=== PATIENT | male | born 1945 | race Caucasian/White ===

== ENCOUNTER 2017-01-20 15:56 | Emergency (ER) | payer MEDICARE, OTHER ==
[2017-01-20] MEDS ORDERED: HYDROcodone/APAP 7.5-325MG 1 EACH TAB PO ONE (16:22)
--- NOTE | 2017-01-20 16:39 | XR ---
EXAMINATION TYPE: XR tibia fibula RT DATE OF EXAM: 01/20/2017 COMPARISON: NONE HISTORY: Laceration and pain TECHNIQUE: 4 views FINDINGS: I see no fracture nor dislocation. There is no sign of foreign body. There is soft tissue d eformity over the anterior lower tibia consistent with laceration. IMPRESSION: Soft tissue deformity. No fracture.
--- NOTE | 2017-01-20 17:33 | ED ---
Lower Extremity Injury HPI - General Chief Complaint: Extremity Injury, Lower Stated Complaint: Lac/ Leg Injury Time Seen by Provider: 01/20/17 16:18 Source: patient, RN notes reviewed Mode of arrival: wheelchair Limitations: physical limitation - History of Present Illness Initial Comments: This a 71-year-old male presents emergency Department chief complaint right leg laceration. Patient states that he was pulling on a rope that was attached to a tree states that the tree fell onto the ladder causing her to fall onto his right lower leg causing a laceration. His tetanus is up-to-date within last 3 years. Patient states that he is able to family but states his leg is very sore. He states is minimal bleeding at this time. He denies any other injuries. - Related Data Home Medications Medication Instructions Recorded Confirmed Omeprazole 20 mg PO DAILY 01/20/17 01/20/17 Previous Rx's Medication Instructions Recorded Cephalexin [Keflex] 500 mg PO Q6HR #40 cap 01/20/17 Allergies Allergy/AdvReac Type Severity Reaction Status Date / Time No Known Allergies Allergy Verified 01/20/17 16:24 Review of Systems ROS Statement: Those systems with pertinent positive or pertinent negative responses have been documented in the HPI. ROS Other: All systems not noted in ROS Statement are negative. Past Medical History Past Medical History: No Reported History History of Any Multi-Drug Resistant Organisms: None Reported Past Surgical History: Appendectomy Past Psychological History: No Psychological Hx Reported Smoking Status: Never smoker Past Alcohol Use History: None Reported Past Drug Use History: None Reported General Exam Limitations: physical limitation General appearance: alert, in no apparent distress Respiratory exam: Present: normal lung sounds bilaterally. Absent: respiratory distress, wheezes, rales, rhonchi, stridor Cardiovascular Exam: Present: regular rate, normal rhythm, normal heart sounds. Absent: systolic murmur, diastolic murmur, rubs, gallop, clicks Extremities exam: Present: other (Right lower extremity there is a V-shaped laceration with total length 8 cm. There is no tenderness to the foot there is mild tenderness around the area and minimal venous ooze pedal pulses are equal bilaterally +2) Skin exam: Present: warm, dry, intact, normal color. Absent: rash Course Vital Signs 01/20/17 16:09 Temperature 98.3 F Pulse Rate 72 Respiratory 20 Rate Blood Pressure 142/80 O2 Sat by Pulse 96 Oximetry Procedures - Laceration Laceration #1 Consent Obtained: verbal consent Indication: laceration Site: lower extremity (Right lower) Size (cm): 8 Description: flap, irregular Depth: simple, single layer Anesthetic Used: lidocaine 1%, without epi Anesthesia Technique: local infiltration Amount (mls): 12 Pre-repair: wound explored, irrigated extensively, deep structures intact Type of Sutures: nylon Size of Sutures: 4-0 Number of Sutures: 23 Technique: simple, interrupted Patient Tolerated Procedure: well, no complications Medical Decision Making - Medical Decision Making 71-year-old male presented for right lower leg laceration. This was closed using sutures x-ray shows no acute fracture. Patient be placed on antibiotics prophylactic for infection. We discussed wound care and recheck in 48 hours and return for any signs of infection. Disposition Clinical Impression: Laceration of right lower leg Disposition: HOME SELF-CARE Condition: Stable Instructions: Care For Your Stitches (ED), Laceration (ED) Additional Instructions: Please return to the Emergency Department if symptoms worsen or any other concerns. Have sutures removed in 14 days Prescriptions: Cephalexin [Keflex] 500 mg PO Q6HR #40 cap Referrals: None,Stated [Primary Care Provider] - 1-2 days Time of Disposition: 17:33
[2017-01-20 17:44] VITALS: BP 137/98; PULSE 68; RESP 18; TEMP 99.9
== END 2017-01-20 17:40 | disposition home or self-care (01) ==
LOC: EC 15:56
DX: S81.811A Laceration without foreign body, right lower leg, initial encounter (principal); Z79.899 Other long term (current) drug therapy; W11.XXXA Fall on and from ladder, initial encounter
CPT/HCPCS: 12004; 99283

== ENCOUNTER 2018-12-08 12:18 | Emergency (ER) | payer MEDICARE, OTHER ==
[2018-12-08] MEDS ORDERED: KETOROLAC 30 MG/ML 1 ML VIAL IM STA (13:05)
[2018-12-08] MEDS ORDERED: MORPHINE SULFATE 4 MG/ML SYRINGE IM STA (13:05)
[2018-12-08] MEDS ORDERED: ORPHENADRINE 30 MG/ML 2 ML VIAL IM STA (13:05)
[2018-12-08] MEDS ORDERED: DEXAMETHASONE SOD PHOSPHATE 10 MG/ML 1 ML VIAL IM STA (13:06)
--- NOTE | 2018-12-08 13:39 | ED ---
Back Pain HPI - General Chief Complaint: Back Pain/Injury Stated Complaint: sciatica pain Time Seen by Provider: 12/08/18 12:28 Source: patient, RN notes reviewed, old records reviewed Limitations: no limitations - History of Present Illness Initial Comments: Patient is a 73-year-old male presents emergency department today with onset of lower back pain radiating down the left leg. Symptoms started after he moved a refrigerator on Friday. He states the pain feels better. Bending forward. He went to the [facility] yesterday and received IM Toradol and had x-rays. He reported the x-rays reviewed to be normal. He states he is looking for pain relief today. Patient states that he was discharged with 7 tablets of by mouth Flexeril. Patient has had no other symptom including abdominal pain, chest pain, shortness of breath. He states the pain is worse with certain movements. - Related Data Home Medications Medication Instructions Recorded Confirmed Cyclobenzaprine [Flexeril] 10 mg PO HS 12/08/18 12/08/18 Previous Rx's Medication Instructions Recorded Acetaminophen with Codeine 1 tab PO Q6H PRN 3 Days #12 tab 12/08/18 [Tylenol w/codeine #3] Cyclobenzaprine [Flexeril] 10 mg PO TID #12 tab 12/08/18 Dexamethasone 0.75 mg PO DAILY #12 tab 12/08/18 Ibuprofen 600 mg PO TID #20 tablet 12/08/18 Allergies Allergy/AdvReac Type Severity Reaction Status Date / Time No Known Allergies Allergy Verified 12/08/18 12:50 Review of Systems ROS Statement: Those systems with pertinent positive or pertinent negative responses have been documented in the HPI. ROS Other: All systems not noted in ROS Statement are negative. Past Medical History Past Medical History: No Reported History Additional Past Medical History / Comment(s): sciatica, psoriasis, [place] History of Any Multi-Drug Resistant Organisms: None Reported Past Surgical History: Appendectomy, Ear Surgery, Hernia Repair Past Psychological History: No Psychological Hx Reported Smoking Status: Former smoker Past Alcohol Use History: None Reported Past Drug Use History: None Reported General Exam - General Exam Comments Initial Comments: 73-year-old male. Alert and oriented. No significant distress. Limitations: no limitations General appearance: alert, in no apparent distress Head exam: Present: atraumatic, normocephalic, normal inspection Eye exam: Present: normal appearance, PERRL, EOMI. Absent: scleral icterus, conjunctival injection, periorbital swelling ENT exam: Present: normal exam, mucous membranes moist Neck exam: Present: normal inspection. Absent: tenderness, meningismus, lymphadenopathy Respiratory exam: Present: normal lung sounds bilaterally. Absent: respiratory distress, wheezes, rales, rhonchi, stridor Cardiovascular Exam: Present: regular rate, normal rhythm, normal heart sounds. Absent: systolic murmur, diastolic murmur, rubs, gallop, clicks GI/Abdominal exam: Present: soft, normal bowel sounds. Absent: distended, tenderness, guarding, rebound, rigid Extremities exam: Present: normal inspection, full ROM, normal capillary refill, other (Patient has tenderness over the left sciatic notch. Positive straight leg test. No specific lumbar spinal tenderness.). Absent: tenderness, pedal edema, joint swelling, calf tenderness Back exam: Present: normal inspection Neurological exam: Present: alert, oriented X3, CN II-XII intact Course Vital Signs 12/08/18 12:20 Temperature 97.7 F Pulse Rate 77 Respiratory 18 Rate Blood Pressure 144/88 O2 Sat by Pulse 97 Oximetry Medical Decision Making - Medical Decision Making 33-year-old male presents with sciatic nerve pain after pushing a refrigerator. Patient's symptoms started on Friday. He denies any saddle anesthesias. Pamela spain reports he seen in the [facility] yesterday had x-rays and was told that there is normal. Was discharged with Toradol and Flexeril and states the pain secondary any better. Patient does have some tenderness or left sciatic notch. Normal pulses and sensation distally. Patient was given IM Norflex, Toradol, Solu-Medrol and morphine. Reevaluation is feeling better. I offered to do more imaging such as CT and Patient declines this time. I discussed discharging the Patient with a short prescription of steroids continuing was fractures and temperature medicine a short prescription of pain medicine. All questions were answered return parameters were discussed. Referral for orthopedic medical insurance coding specialist completed. Disposition Clinical Impression: Left-sided low back pain with sciatica Disposition: HOME SELF-CARE Condition: Good Instructions (If sedation given, give patient instructions): Acute Low Back Pain (ED) Additional Instructions: Patient is alternating between heat and ice. Follow up with surgical medical insurance coding specialist. Return to the emergency department if any alarming signs or symptoms occur. Prescriptions: Dexamethasone 0.75 mg PO DAILY #12 tab Cyclobenzaprine [Flexeril] 10 mg PO TID #12 tab Ibuprofen 600 mg PO TID #20 tablet Acetaminophen with Codeine [Tylenol w/codeine #3] 1 tab PO Q6H PRN 3 Days #12 tab PRN Reason: Pain Is patient prescribed a controlled substance at d/c from ED?: Yes If prescribed controlled substance>3 days was MAPS reviewed?: Prescribed <3 Days If opioid is for acute pain is fill amount 7 days or less?: Yes If Rx opioid, was Start Talking consent form obtained?: Yes Referrals: Rubén Damico MD [Primary Care Provider] - 1-2 days Time of Disposition: 13:49
[2018-12-08 14:18] VITALS: BP 144/78; PULSE 68; RESP 16; TEMP 97.9
== END 2018-12-08 14:15 | disposition home or self-care (01) ==
LOC: EC 12:18
DX: M54.42 Lumbago with sciatica, left side (principal); Z87.891 Personal history of nicotine dependence; Z79.899 Other long term (current) drug therapy; Z53.29 Procedure and treatment not carried out because of patient's decision for other reasons
CPT/HCPCS: 99284; 96372 ×4; J2270; J1100; J2360; J1885

== ENCOUNTER 2019-02-13 14:49 | Emergency (ER) | payer OTHER ==
[2019-02-13] MEDS ORDERED: fentaNYL (PF) 50 MCG/ML 2 ML AMP IVP PRN ×2 (15:16→15:26)
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
[2019-02-13 15:50] LABS: Anisocytosis Slight; Basophils # (A) 0.1 k/uL (0-0.2); Basophils % (A) 1 %; Eosinophils # (A) 0.7 k/uL (0-0.7); Eosinophils % (A) 7 %; HGB 13.7 gm/dL (13.0-17.5); Lymphocytes # (A) 1.8 k/uL (1.0-4.8); Lymphocytes % (A) 19 %; MCH 32.7 pg (25.0-35.0); MCHC 33.3 g/dL (31.0-37.0); MCV 98.3 fL (80.0-100.0); Macrocytosis Slight; Mean Platelet Volume 7.5; Monocytes # (A) 0.6 k/uL (0-1.0); Monocytes % (A) 6 %; Neutrophils # (A) 6.2 k/uL (1.3-7.7); Neutrophils % (A) 64 %; Platelet Count 284 k/uL (150-450); RBC 4.18 m/uL (4.30-5.90); WBC 9.7 k/uL (3.8-10.6)
[2019-02-13 15:54] LABS: Prothrombin Time 10.7 sec (9.0-12.0)
[2019-02-13 16:16] LABS: African American GFR (CKD) >90 (>60 ml/min/1.73 sqM); Anion Gap 8 mmol/L; Blood Urea Nitrogen 11 mg/dL (9-20); Calcium 9.4 mg/dL (8.4-10.2); Carbon Dioxide 26 mmol/L (22-30); Chloride 104 mmol/L (98-107); Glucose 107 mg/dL (74-99); Potassium 4.5 mmol/L (3.5-5.1); Sodium 138 mmol/L (137-145)
[2019-02-13 16:44] LABS: Appearance,Urine Clear (Clear); Bilirubin,Urine Negative (Negative); Blood,Urine Large (Negative); Color,Urine Light Red; Glucose,Urine (UA) Negative (Negative); Ketones,Urine Negative (Negative); Leukocyte Esterase,Urine Negative (Negative); Nitrite,Urine Negative (Negative); Protein,Urine 1+ (Negative); RBC,Urine 20 /hpf (0-5); Specific Gravity,Urine 1.005 (1.001-1.035); Urobilinogen,Urine <2.0 mg/dL (<2.0)
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
[2019-02-13 17:51] VITALS: BP 140/90; PULSE 62; RESP 18; TEMP 98.1
== END 2019-02-13 17:50 | disposition home or self-care (01) ==
LOC: EC 14:49
DX: M54.9 Dorsalgia, unspecified (principal); R31.9 Hematuria, unspecified; Z79.899 Other long term (current) drug therapy; Z87.891 Personal history of nicotine dependence
CPT/HCPCS: 36415; 93005; 86900; 86901; 80048; 82550; 85025; 85610; 86850; 81001; 71260; 74177; 99284; 96374; J3010; Q9967

== ENCOUNTER → 2020-12-26 | Outpatient (CLI) | payer OTHER ==
[2020-12-26 17:00] LABS: HCT 41.3 % (39.0-53.0); HGB 14.3 gm/dL (13.0-17.5); MCH 34.2 pg (25.0-35.0); MCHC 34.5 g/dL (31.0-37.0); MCV 99.1 fL (80.0-100.0); Mean Platelet Volume 7.4; Platelet Count 290 k/uL (150-450); RBC 4.17 m/uL (4.30-5.90); RDW 15.4 % (11.5-15.5); WBC 9.1 k/uL (3.8-10.6)
[2020-12-26 17:09] LABS: Potassium 4.7 mmol/L (3.5-5.1)
== END | disposition home or self-care (01) ==
LOC: LABPAT 16:20
PROVIDERS: ATTEND Surgery
DX: Z01.812 Encounter for preprocedural laboratory examination (principal); K57.33 Diverticulitis of large intestine without perforation or abscess with bleeding; I44.0 Atrioventricular block, first degree; I45.19 Other right bundle-branch block; I44.4 Left anterior fascicular block; R94.31 Abnormal electrocardiogram [ECG] [EKG]
CPT/HCPCS: 36415; 80051; 85027; 86850; 86900; 86901; 93005

== ENCOUNTER 2021-01-02 06:33 | Day surgery (SDC) | payer OTHER ==
[2020-12-28 10:09] VITALS: BMI 25.7
[~2021-01-02 06:33] MED LIST: LACTATED RINGERS 1,000 ML IV SCH; LIDOCAINE 1% (10MG/ML) FOR IV START INTRADERMA PRN
[2021-01-02 07:00] VITALS: RESP 16; TEMP 98.7
[2021-01-02] MEDS ORDERED: PROPOFOL 10 MG/ML 20 ML VIAL IV ONE (07:50)
--- NOTE | 2021-01-02 07:56 | P.GSHP ---
History of Present Illness H&P Date: 01/02/21 Chief Complaint: Diverticulitis This a 75-year-old male who's had a recent history diverticulitis. Patient presents today for colonoscopy. He'll undergo low anterior section tomorrow. Past Medical History Past Medical History: Cancer, GERD/Reflux Additional Past Medical History / Comment(s): psoriasis, [place], constipation, diverticulitis, hx bladder cancer., BPH. History of Any Multi-Drug Resistant Organisms: MRSA Date of last positivie culture/infection: jul 2017 MDRO Source:: rt ear Past Surgical History: Appendectomy, Bladder Surgery, Ear Surgery, Hernia Repair Additional Past Surgical History / Comment(s): right ear surgery Past Anesthesia/Blood Transfusion Reactions: No Reported Reaction Past Psychological History: No Psychological Hx Reported Smoking Status: Former smoker Past Alcohol Use History: Occasional Additional Past Alcohol Use History / Comment(s): quit smoking 30 yrs ago, smoked 1 ppd, started age 19. drinks 6 beers/week Past Drug Use History: None Reported - Past Family History Mother Family Medical History: No Reported History Medications and Allergies Home Medications Medication Instructions Recorded Confirmed Type Omeprazole 20 mg PO DAILY 02/13/19 01/02/21 History Calcipotriene Cream 1 applicate TOPICAL DIRECTED PRN 12/28/20 01/02/21 History Clobetasol Cream 1 applic TOPICAL DIRECTED PRN 12/28/20 01/02/21 History Allergies Allergy/AdvReac Type Severity Reaction Status Date / Time No Known Allergies Allergy Verified 12/28/20 09:08 Surgical - Exam Vital Signs Temp Pulse Resp BP Pulse Ox 98.7 F 60 16 161/81 97 01/02/21 06:59 01/02/21 06:59 01/02/21 06:59 01/02/21 06:59 01/02/21 06:59 - General well developed, well nourished, no distress - Eyes PERRL - ENT normal pinna - Neck no masses - Respiratory normal expansion - Cardiovascular Rhythm: regular - Abdomen Abdomen: soft, non tender Assessment and Plan Assessment: Diverticulitis. We'll perform colonoscopy.
--- NOTE | 2021-01-02 08:04 | P.OP ---
Date of Procedure: 01/02/21 Preoperative Diagnosis: Diverticulitis Postoperative Diagnosis: Diverticulosis Procedure(s) Performed: Colonoscopy Anesthesia: MAC Surgeon: Lalo Ferguson Pathology: none sent Condition: stable Disposition: PACU Description of Procedure: The patient's placed on the endoscopy table in the lateral position. He received IV sedation. Digital rectal exam was performed which revealed no abnormalities. Flexible colonoscope was then placed patient anus and passed throughout the entire colon. The ileocecal valve sutures. The cecum, ascending and transverse colon appeared normal. In the descending and sigmoid colon there is mild diverticular changes. Scope was brought back the rectum and this appear ed normal. Scope withdrawn for patient.
[2021-01-02 08:42] VITALS: BP 142/80; PULSE 55
== END 2021-01-02 08:50 | disposition home or self-care (01) ==
LOC: ORWHC2ENDO 06:33
PROVIDERS: ATTEND Surgery
DX: K57.30 Diverticulosis of large intestine without perforation or abscess without bleeding (principal); K21.9 Gastro-esophageal reflux disease without esophagitis; L40.9 Psoriasis, unspecified; H91.90 Unspecified hearing loss, unspecified ear; Z85.51 Personal history of malignant neoplasm of bladder; N40.0 Benign prostatic hyperplasia without lower urinary tract symptoms; Z86.14 Personal history of Methicillin resistant Staphylococcus aureus infection; Z90.89 Acquired absence of other organs; Z98.890 Other specified postprocedural states; Z87.891 Personal history of nicotine dependence
CPT/HCPCS: 45378; J2704

== ENCOUNTER 2021-01-03 08:57 | Inpatient (IN) | payer OTHER ==
[2021-01-04 11:49] VITALS: BMI 25.9
[2021-01-08 14:00] VITALS: BP 154/83; PULSE 66; RESP 18; TEMP 97.7
== END 2021-01-08 17:46 | disposition home health service (06) | DRG 330 ==
LOC: 2ORMAIN 08:57 → 4SSUR 13:26
PROVIDERS: ADMIT Surgery; ATTEND Surgery
PROC: 0DBN0ZZ Excision of Sigmoid Colon, Open Approach (ICD-10-PCS; principal; 2021-01-03)
DX: K57.32 Diverticulitis of large intestine without perforation or abscess without bleeding (principal); J98.11 Atelectasis; K59.09 Other constipation; L29.9 Pruritus, unspecified; N40.1 Benign prostatic hyperplasia with lower urinary tract symptoms; R33.8 Other retention of urine; L40.9 Psoriasis, unspecified; K21.9 Gastro-esophageal reflux disease without esophagitis; D64.9 Anemia, unspecified; Z85.51 Personal history of malignant neoplasm of bladder; Z87.891 Personal history of nicotine dependence; Z90.49 Acquired absence of other specified parts of digestive tract; Z20.822 Contact with and (suspected) exposure to COVID-19; Z86.14 Personal history of Methicillin resistant Staphylococcus aureus infection; Z88.8 Allergy status to other drugs, medicaments and biological substances
CPT/HCPCS: 71045; 80048; 85025; 87635; 88307; 94640; 94760

== ENCOUNTER 2021-01-14 06:02 | Inpatient (IN) | payer OTHER, MEDICARE ==
[2021-01-14] MEDS ORDERED: MORPHINE SULFATE 4 MG/ML SYRINGE IVP STA (06:22)
[2021-01-14] MEDS ORDERED: SODIUM CHLORIDE 0.9% 1,000 ML IV ONE (06:25)
[2021-01-14 06:29] LABS: Basophils # (A) 0.1 k/uL (0-0.2); Basophils % (A) 0 %; Eosinophils # (A) 0.4 k/uL (0-0.7); Eosinophils % (A) 2 %; Lymphocytes # (A) 1.2 k/uL (1.0-4.8); Lymphocytes % (A) 8 %; MCHC 33.8 g/dL (31.0-37.0); MCV 97.5 fL (80.0-100.0); Mean Platelet Volume 7.2; Monocytes # (A) 0.7 k/uL (0-1.0); Monocytes % (A) 4 %; Neutrophils # (A) 13.8 k/uL (1.3-7.7); Neutrophils % (A) 84 %; Platelet Count 488 k/uL (150-450); RDW 15.8 % (11.5-15.5); WBC 16.4 k/uL (3.8-10.6)
--- NOTE | 2021-01-14 06:31 | ED ---
Abdominal Pain HPI - General Chief Complaint: Abdominal Pain Stated Complaint: Abd Pain Time Seen by Provider: 01/14/21 06:03 Source: patient, EMS Mode of arrival: EMS Limitations: no limitations - History of Present Illness Initial Comments: 75-year-old male presents with diffuse abdominal pain that occurred yesterday. Patient states he had a colon resection one week ago with Dr. Pimentel was doing well until yesterday. Patient has been taking oxycodone which is been controlling his pain. Patient states the pain is diffuse but mostly on the left side. Patient denies any recorded fevers but did feel chilled overnight. No vomiting but did have some nausea. Patient states he's had bowel movements every day about 2 days it's been more loose. No blood. Patient's last bowel movement was yesterday. Patient has not ate today has no appetite today. No dysuria no back pain. He denies any chest pain or shortness of breath. Patient states he has a history of bladder cancer that is in remission. pt able to pass gas -: hour(s) (5) Location: diffuse, LUQ, LLQ Severity scale (1-10): 9 Quality: aching Improves With: nothing, rest Worsens With: movement Context: recent injury (colon resection due to diverticulitis) Associated Symptoms: nausea Treatments Prior to Arrival: prescription analgesics - Related Data Home Medications Medication Instructions Recorded Confirmed Omeprazole 20 mg PO DAILY 02/13/19 01/14/21 Calcipotriene [Dovonex] 1 applic TOPICAL BID PRN 01/14/21 01/14/21 Clobetasol Propionate [Temovate 1 applic TOPICAL BID PRN 01/14/21 01/14/21 0.05% Cream] Previous Rx's Medication Instructions Recorded HYDROcodone/APAP 5-325MG [[place] 1 tab PO Q6HR PRN 3 Days #12 tab 01/08/21 5-325] Ibuprofen [Motrin] 600 mg PO Q8HR PRN #30 tab 01/08/21 Allergies Allergy/AdvReac Type Severity Reaction Status Date / Time Hrhmjuw-Fqq-Eas Reductase AdvReac Unknown Unknown Verified 01/14/21 10:02 Inhibitor Review of Systems ROS Statement: Those systems with pertinent positive or pertinent negative responses have been documented in the HPI. ROS Other: All systems not noted in ROS Statement are negative. Constitutional: Denies: fever Cardiovascular: Denies: chest pain, palpitations Gastrointestinal: Reports: abdominal pain, nausea, diarrhea (loose). Denies: constipation Musculoskeletal: Denies: as per HPI Past Medical History Past Medical History: Cancer, GERD/Reflux Additional Past Medical History / Comment(s): psoriasis, [place], constipation, diverticulitis, hx bladder cancer., BPH. History of Any Multi-Drug Resistant Organisms: MRSA Date of last positivie culture/infection: jul 2017 MDRO Source:: rt ear Past Surgical History: Appendectomy, Bladder Surgery, Ear Surgery, Hernia Repair Additional Past Surgical History / Comment(s): right ear surgery. Bowel resection 01/02/2021. Past Anesthesia/Blood Transfusion Reactions: No Reported Reaction Past Psychological History: No Psychological Hx Reported Smoking Status: Former smoker Past Alcohol Use History: Occasional Past Drug Use History: None Reported - Past Family History Mother Family Medical History: No Reported History General Exam Limitations: no limitations General appearance: alert, in distress (pain) Eye exam: Present: normal appearance, PERRL, EOMI. Absent: scleral icterus, conjunctival injection, periorbital swelling ENT exam: Present: normal exam, mucous membranes moist Neck exam: Present: normal inspection. Absent: tenderness, meningismus, lymphadenopathy Cardiovascular Exam: Present: regular rate GI/Abdominal exam: Present: soft, distended (slight), tenderness (x 4 worse on left side ), guarding (x 4 worse on left side), normal bowel sounds. Absent: rebound, rigid Back exam: Present: normal inspection. Absent: CVA tenderness (R), CVA tend erness (L) Neurological exam: Present: alert, oriented X3 Psychiatric exam: Present: normal affect, normal mood Skin exam: Present: warm, dry, intact, normal color. Absent: rash Course Vital Signs 01/14/21 06:03 Temperature 98.8 F Pulse Rate 94 Respiratory 16 Rate Blood Pressure 127/88 O2 Sat by Pulse 95 Oximetry Medical Decision Making - Medical Decision Making Reviewed EKG rate 92 bpm sinus rhythm Patient was given 4 mg of morphine and still in discomfort as a 9 out of 10 therefore 1 mg of Dilaudid was then given patient has improved patient resting well. Dr. Dubon was consulted and wanted him admitted to medical services for observation. Discussed with Dr. larry. Patient has elevated white blood cell count at 16.4. - Lab Data Result diagrams: 01/14/21 06:22 01/14/21 06:22 Lab Results 01/14/21 01/14/21 01/14/21 Range/Units 06:22 06:22 06:29 WBC 16.4 H (3.8-10.6) k/uL RBC 4.10 L (4.30-5.90) m/uL Hgb 13.5 D (13.0-17.5) gm/dL Hct 40.0 (39.0-53.0) % MCV 97.5 (80.0-100.0) fL MCH 33.0 (25.0-35.0) pg MCHC 33.8 (31.0-37.0) g/dL RDW 15.8 H (11.5-15.5) % Plt Count 488 H (150-450) k/uL MPV 7.2 Neutrophils % 84 % Lymphocytes % 8 % Monocytes % 4 % Eosinophils % 2 % Basophils % 0 % Neutrophils # 13.8 H (1.3-7.7) k/uL Lymphocytes # 1.2 (1.0-4.8) k/uL Monocytes # 0.7 (0-1.0) k/uL Eosinophils # 0.4 (0-0.7) k/uL Basophils # 0.1 (0-0.2) k/uL Sodium 137 (137-145) mmol/L Potassium 4.7 (3.5-5.1) mmol/L Chloride 108 H (98-107) mmol/L Carbon Dioxide 23 (22-30) mmol/L Anion Gap 6 mmol/L BUN 27 H (9-20) mg/dL Creatinine 0.80 (0.66-1.25) mg/dL Est GFR (CKD-EPI)AfAm >90 (>60 ml/min/1.73 sqM) Est GFR (CKD-EPI)NonAf 87 (>60 ml/min/1.73 sqM) Glucose 126 H (74-99) mg/dL Plasma Lactic Acid Te 1.1 (0.7-2.0) mmol/L Calcium 9.1 (8.4-10.2) mg/dL Total Bilirubin 1.4 H (0.2-1.3) mg/dL AST 30 (17-59) U/L ALT 23 (4-49) U/L Alkaline Phosphatase 79 (38-126) U/L Total Protein 6.3 (6.3-8.2) g/dL Albumin 3.6 (3.5-5.0) g/dL Amylase 50 (30-110) U/L Lipase 59 (23-300) U/L Disposition Clinical Impression: S/P colon resection, Abdominal pain, Leukocytosis Disposition: ADMITTED IP TO THIS [facility] Condition: Fair Instructions (If sedation given, give patient instructions): Abdominal Pain (ED) Is patient prescribed a controlled substance at d/c from ED?: No Referrals: [facility],Clinic [Primary Care Provider] - 1-2 days
[2021-01-14 06:37] LABS: HGB 13.5 gm/dL (13.0-17.5)
[2021-01-14 06:46] LABS: ALT 23 U/L (4-49); AST 30 U/L (17-59); African American GFR (CKD) >90 (>60 ml/min/1.73 sqM); Albumin 3.6 g/dL (3.5-5.0); Alkaline Phosphatase 79 U/L (38-126); Amylase 50 U/L (30-110); Anion Gap 6 mmol/L; Blood Urea Nitrogen 27 mg/dL (9-20); Calcium 9.1 mg/dL (8.4-10.2); Carbon Dioxide 23 mmol/L (22-30); Chloride 108 mmol/L (98-107); Glucose 126 mg/dL (74-99); Lipase 59 U/L (23-300); Non-African American GFR(CKD) 87 (>60 ml/min/1.73 sqM); Potassium 4.7 mmol/L (3.5-5.1); Sodium 137 mmol/L (137-145); Total Bilirubin 1.4 mg/dL (0.2-1.3); Total Protein 6.3 g/dL (6.3-8.2)
[2021-01-14] MEDS ORDERED: HYDROmorphone 1 MG/ML 1 ML SYRINGE IVP STA (07:26)
--- NOTE | 2021-01-14 07:38 | CT ---
EXAMINATION TYPE: CT abdomen pelvis w con DATE OF EXAM: 01/14/2021 COMPARISON: 02/13/2019 HISTORY: Abdominal pain, status post resection CT DLP: 1035.3 mGycm CONTRAST: CT scan of the abdomen and pelvis is performed without Oral Contrast and with IV Contrast, patient in jected with 100 mL of Isovue 300. FINDINGS: LUNG BASES-: No visible nodule. No infiltrate. LIVER/GB: No calcified gallstones. No space occupying hepatic lesion. Biliary tree is of normal ca liber. PANCREAS: No inflammation. No distinct mass. SPLEEN: No splenic enlargement. No lesion seen. ADRENALS: No nodule. No thickening. KIDNEYS/BLADDER: No hydronephrosis. No nephrolithiasis. No distinct renal mass. Urinary bladder g rossly unremarkable. BOWEL: Small amount of pneumoperitoneum identified. Correlate with patient's surgical history and juice e frame. Intermediate attenuation collections are seen anterior to the rectus musculature both on the right measuring 3.1 cm and on the left measuring 3.4 cm in transverse dimension. These may reflect s eromas. Bowel wall thickening involving distal bowel loops. Sigmoid resection with anastomosis change s. GENITAL ORGANS: No gross abnormality. LYMPH NODES: No greater than 1cm abdominal or pelvic lymph nodes are appreciated. AORTA: No significant abnormality. OSSEOUS STRUCTURES: No significant abnormality is seen. OTHER: There is a small amount of fluid within the paracolic gutters. Within the pelvis there is a fl uid collection anterior to the sacrum and measures 2.6 cm. This could reflect ascites with internal a ir. Small abscess is difficult to exclude. Additional fluid with small focus of air right hemipelvis may reflect additional ascites with air within it however abscess is not excluded. IMPRESSION: 1. Small amount of pneumoperitoneum identified. Correlate with patient's surgical history and time fr chi. 2.There is a small amount of fluid within the paracolic gutters. Within the pelvis there is a fluid c ollection anterior to the sacrum and measures 2.6 cm. This could reflect ascites with internal air. S mall abscess is difficult to exclude. Additional fluid with small focus of air right hemipelvis measu ring 2.5 cm may reflect additional ascites with air however abscess is not excluded.
--- NOTE | 2021-01-14 07:39 | XR ---
EXAMINATION TYPE: XR chest 2V DATE OF EXAM: 01/14/2021 COMPARISON: 01/06/2021 HISTORY: Shortness of breath TECHNIQUE: Frontal and lateral views of the chest are obtained. FINDINGS: Scattered senescent parenchymal changes noted. Hyperinflation compatible with COPD. No evidence for infiltrate. No evidence for atelectasis. Heart size is stable. Mediastinal structures are stable and grossly unremarkable. No evidence for hilar prominence. Degenerative changes dorsal spine. IMPRESSION: 1. No evidence for acute pulmonary disease. 2. Pneumoperitoneum identified. Correlate with recent history of laparotomy.
[2021-01-14] MEDS ORDERED: PIPERACILLIN-TAZOBACTAM 3.375 GM in SODIUM CHLORIDE 0.9% 100 ML IVPB STA (09:33)
[2021-01-14] MEDS ORDERED: NALOXONE 0.4 MG/ML 1 ML VIAL IV PRN (10:18)
[2021-01-14] MEDS: SODIUM CHLORIDE 0.9% 1,000 ML IV SCH (11:26)
[2021-01-14] MEDS ORDERED: TEMAZEPAM 15 MG CAP PO PRN (13:12)
[2021-01-14] MEDS ORDERED: CLOBETASOL PROP 0.05% CR 15GM TOPICAL PRN (13:12)
[2021-01-14] MEDS ORDERED: CALCIPOTRIENE TOPICAL PRN (13:12)
[2021-01-14] MEDS ORDERED: ALPRAZolam 0.25 MG TAB PO PRN (13:12)
[2021-01-14] MEDS ORDERED: HYDROmorphone 0.5 MG/0.5 ML SYRINGE IVP PRN (14:00)
[2021-01-14] MEDS: HYDROmorphone 1 MG/ML 1 ML SYRINGE IVP PRN ×4 (14:18→23:39)
--- NOTE | 2021-01-14 14:57 | P.GSCN ---
History of Present Illness Consult date: 01/14/21 History of present illness: Patient returns to the hospital after recent discharge less than 1 week ago. Patient lives alone. Family is at bedside. Patient reports lifting and moving than he should and had immediate lower abdominal pain. He is complaining of gas pain. ABDOMEN: No cellulitis or infection. No peritonitis. Tender lower abdomen STUDIES: CT of the abdomen and pelvis independently reviewed with rectus sheath hematoma. Post surgical changes noted and appropriate. This is my independent interpretation. ASSESSMENT: 1. Post surgical pain PLAN: 1. Recommend abdominal binder 2. IV fluid hydration 3. Ice pack to abdomen 4. Conservative management 5. Simethicone scheduled Past Medical History Past Medical History: Cancer, GERD/Reflux Additional Past Medical History / Comment(s): psoriasis, [place], constipation, diverticulitis, hx bladder cancer., BPH. History of Any Multi-Drug Resistant Organisms: MRSA Year Discovered:: jul 2017 MDRO Source:: rt ear Past Surgical History: Appendectomy, Bladder Surgery, Ear Surgery, Hernia Repair Additional Past Surgical History / Comment(s): right ear surgery. Bowel resection 01/02/2021. Past Anesthesia/Blood Transfusion Reactions: No Reported Reaction Past Psychological History: No Psychological Hx Reported Smoking Status: Former smoker Past Alcohol Use History: Occasional Additional Past Alcohol Use History / Comment(s): quit smoking 30 yrs ago, smoked 1 ppd, started age 19. drinks 6 beers/week Past Drug Use History: None Reported - Past Family History Mother Family Medical History: No Reported History Medications and Allergies Home Medications Medication Instructions Recorded Confirmed Type Omeprazole 20 mg PO DAILY 02/13/19 01/14/21 History HYDROcodone/APAP 5-325MG [[place] 1 tab PO Q6HR PRN 3 Days #12 tab 01/08/21 01/14/21 Rx 5-325] Ibuprofen [Motrin] 600 mg PO Q8HR PRN #30 tab 01/08/21 01/14/21 Rx Calcipotriene [Dovonex] 1 applic TOPICAL BID PRN 01/14/21 01/14/21 History Clobetasol Propionate [Temovate 1 applic TOPICAL BID PRN 01/14/21 01/14/21 History 0.05% Cream] Allergies Allergy/AdvReac Type Severity Reaction Status Date / Time [id number]-Uhh Reductase AdvReac Unknown Unknown Verified 01/14/21 10:02 Inhibitor Surgical - Exam Vital Signs Temp Pulse Resp BP Pulse Ox 98.8 F 94 16 127/88 95 01/14/21 06:03 01/14/21 06:03 01/14/21 06:03 01/14/21 06:03 01/14/21 06:03 Results - Labs 01/14/21 06:22 01/14/21 06:22 Abnormal Lab Results - Last 24 Hours (Table) 01/14/21 01/14/21 Range/Units 06:22 06:22 WBC 16.4 H (3.8-10.6) k/uL RBC 4.10 L (4.30-5.90) m/uL RDW 15.8 H (11.5-15.5) % Plt Count 488 H (150-450) k/uL Neutrophils # 13.8 H (1.3-7.7) k/uL Chloride 108 H (98-107) mmol/L BUN 27 H (9-20) mg/dL Glucose 126 H (74-99) mg/dL Total Bilirubin 1.4 H (0.2-1.3) mg/dL Diabetes panel 01/14/21 Range/Units 06:22 Sodium 137 (137-145) mmol/L Potassium 4.7 (3.5-5.1) mmol/L Chloride 108 H (98-107) mmol/L Carbon Dioxide 23 (22-30) mmol/L BUN 27 H (9-20) mg/dL Creatinine 0.80 (0.66-1.25) mg/dL Glucose 126 H (74-99) mg/dL Calcium 9.1 (8.4-10.2) mg/dL AST 30 (17-59) U/L ALT 23 (4-49) U/L Alkaline Phosphatase 79 (38-126) U/L Total Protein 6.3 (6.3-8.2) g/dL Albumin 3.6 (3.5-5.0) g/dL Calcium panel 01/14/21 Range/Units 06:22 Calcium 9.1 (8.4-10.2) mg/dL Albumin 3.6 (3.5-5.0) g/dL Pituitary panel 01/14/21 Range/Units 06:22 Sodium 137 (137-145) mmol/L Potassium 4.7 (3.5-5.1) mmol/L Chloride 108 H (98-107) mmol/L Carbon Dioxide 23 (22-30) mmol/L BUN 27 H (9-20) mg/dL Creatinine 0.80 (0.66-1.25) mg/dL Glucose 126 H (74-99) mg/dL Calcium 9.1 (8.4-10.2) mg/dL Adrenal panel 01/14/21 Range/Units 06:22 Sodium 137 (137-145) mmol/L Potassium 4.7 (3.5-5.1) mmol/L Chloride 108 H (98-107) mmol/L Carbon Dioxide 23 (22-30) mmol/L BUN 27 H (9-20) mg/dL Creatinine 0.80 (0.66-1.25) mg/dL Glucose 126 H (74-99) mg/dL Calcium 9.1 (8.4-10.2) mg/dL Total Bilirubin 1.4 H (0.2-1.3) mg/dL AST 30 (17-59) U/L ALT 23 (4-49) U/L Alkaline Phosphatase 79 (38-126) U/L Total Protein 6.3 (6.3-8.2) g/dL Albumin 3.6 (3.5-5.0) g/dL
[2021-01-14] MEDS: PIPERACILLIN-TAZOBACTAM 3.375 GM in SODIUM CHLORIDE 0.9% 100 ML IVPB SCH ×2 (15:45→23:40)
[2021-01-14 16:27] LABS: Appearance,Urine Clear (Clear); Bilirubin,Urine Negative (Negative); Blood,Urine Negative (Negative); Color,Urine Yellow; Glucose,Urine (UA) Negative (Negative); Ketones,Urine Trace (Negative); Leukocyte Esterase,Urine Negative (Negative); Nitrite,Urine Negative (Negative); Protein,Urine Trace (Negative); Urobilinogen,Urine <2.0 mg/dL (<2.0)
[2021-01-14] MEDS: SIMETHICONE 40 MG/0.6 ML DROPS 2,000 MG/30 ML BOTTLE PO SCH ×2 (16:27→20:34)
[2021-01-14 16:29] LABS: Specific Gravity,Urine >1.050 (1.001-1.035)
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
[2021-01-14] MEDS: HEPARIN SODIUM,PORCINE/PF 5,000 UNIT/0.5 ML SYRINGE SQ SCH (20:34)
[2021-01-14] MEDS: ONDANSETRON 4 MG/2 ML VIAL IVP PRN (20:37)
--- NOTE | 2021-01-15 00:39 | CONS ---
CONSULTATION DATE OF SERVICE: 01/14/2021 REASON FOR CONSULTATION: Abnormal CT concerning for abdominal infection. HISTORY OF PRESENT ILLNESS: The patient is a 75-year-old male who is status post abdominal surgery by Dr. Ferguson about a week ago. The patient was doing well until yesterday. Apparently the patient has moved her mattress and subsequently noticed to having abdominal pain. The patient's pain has been mostly in the lower abdominal area. Patient described the pain to be more of a dull aching to sharp 6 to 7/10 and no radiation. The patient felt nauseated but no vomiting. The patient was complaining of some chills but denies any fever. With these symptoms, the patient presented to the [facility] ER. On arrival to the ER, the patient was afebrile. He did have a white count of 16.4 with a left shift. Creatinine was normal. Urine was negative. Gabriel PCR was negative. The patient did have a CT of abdomen and pelvis completed which did show small amount of pneumoperitoneum, small amount of fluid within the pericolic gutters and fluid collection anterior to the sacrum area 2.6 cm with internally and small abscess not definitely excluded. Patient started on Zosyn. Has been admitted to the hospital. Infectious Disease was consulted for further management of antibiotic therapy. REVIEW OF SYSTEMS: Positive points have been mentioned in HPI. Rest of systems are negative. PAST MEDICAL HISTORY: Psoriasis, constipation, diverticulitis, history of bladder cancer, BPH, and reflux disease. PAST SURGICAL HISTORY: Appendectomy, hernia repair and recent low anterior resection and anastomosis. SOCIAL HISTORY: Remote history of smoking. Rarely drinks. No drug use. FAMILY HISTORY: No pertinent findings noticed. ALLERGIES: TO STATIN. MEDICATIONS: The patient is currently on Xanax, heparin, Dilaudid, Narcan, Zosyn, Simethicone. PHYSICAL EXAMINATION: Blood pressure is 128/86, pulse of 95, temperature is 97.9. He is 93% on room air. GENERAL DESCRIPTION: The patient is an elderly male lying in bed in no distress. No tachypnea or accessory muscles of respiration use. HEENT: Examination shows no pallor or scleral icterus. Oral mucous membranes dry. NECK: Trachea central. No thyromegaly. LUNGS: Unlabored breathing, clear to auscultation anteriorly. HEART S1, S2. Regular rate and rhythm. ABDOMEN: Soft. Incision is intact. Mildly distended and tender to touch. EXTREMITIES: No edema of the feet. SKIN examination: No rash or mass palpable. NEUROLOGICAL: The patient is awake and alert and oriented times three. Mood and affect normal. LABS: Hemoglobin is 13.1, white count 16.4, BUN of 20, creatinine 0.80. DIAGNOSTIC IMPRESSION AND PLAN: Patient admitted to the hospital with abdominal pain in this patient who recently did have a colon resection and anastomosis with evidence of elevated white count and fluid collection, concern for possible postoperative seroma versus an abscess and will need to cover for the enteric gram-negative both aerobes and anaerobes. PLAN: 1. The patient to continue with Zosyn 3.375 g q.8h. 2. Gentle IV fluids. 3. We will follow on clinical condition and culture to further adjust medication if needed. Thank you for this consultation. We will follow this patient along with you. [place] / MAXIMN: [id number] / MTDQuynh
[2021-01-15] MEDS: HYDROmorphone 1 MG/ML 1 ML SYRINGE IVP PRN ×6 (05:33→23:46)
[2021-01-15] MEDS: PIPERACILLIN-TAZOBACTAM 3.375 GM in SODIUM CHLORIDE 0.9% 100 ML IVPB SCH ×3 (08:14→23:42)
[2021-01-15] MEDS: HEPARIN SODIUM,PORCINE/PF 5,000 UNIT/0.5 ML SYRINGE SQ SCH ×2 (08:14→21:14)
[2021-01-15] MEDS: SIMETHICONE 40 MG/0.6 ML DROPS 2,000 MG/30 ML BOTTLE PO SCH ×4 (08:15→21:14)
[2021-01-15 08:49] LABS: HCT 42.9 % (39.6-50.0); MCH 32.6 pg (27.0-32.0); MCHC 32.6 g/dL (32.0-37.0); MCV 99.8 fL (80.0-97.0); Mean Platelet Volume 9.7 fL (9.5-12.2); Platelet Count 550 X 10*3/uL (140-440); WBC 27.36 X 10*3/uL (4.50-10.00)
[2021-01-15 09:17] LABS: African American GFR (CKD) 56.2 (60.0-200.0); Albumin 3.5 g/dL (3.80-4.90); Albumin/Globulin Ratio 1.59 (1.60-3.17); Anion Gap 10.9 mmol/L (4.00-12.00); BUN/Creat Ratio 35.71 Ratio (12.00-20.00); Calcium 8.6 mg/dL (8.7-10.3); Carbon Dioxide 20.1 mmol/L (21.6-31.8); Globulin 2.2 g/dL (1.6-3.3); Non-African American GFR(CKD) 48.5 (60.0-200.0); Potassium 4.9 mmol/L (3.5-5.5); Total Protein 5.7 g/dL (6.2-8.2)
[2021-01-15 10:32] LABS: Basophils # (A) 0.14 X 10*3/uL (0.00-0.10); Basophils % (A) 0.5 %; Eosinophils # (A) 0 X 10*3/uL (0.04-0.35); Eosinophils % (A) 0 %; Lymphocytes # (A) 0.66 X 10*3/uL (0.90-5.00); Lymphocytes % (A) 2.4 %; Monocytes # (A) 0.76 X 10*3/uL (0.20-1.00); Monocytes % (A) 2.8 %; Neutrophils # (A) 25.54 X 10*3/uL (1.80-7.70); Neutrophils % (A) 93.3 %
--- NOTE | 2021-01-15 11:41 | P.PN ---
Subjective Progress Note Date: 01/15/21 CHIEF COMPLAINT: Abdominal pain HISTORY OF PRESENT ILLNESS: Surgical service is following regards to patient's abdominal pain and rectus sheath hematoma. Apparently at home patient had lifted his bed mattress. He has his abdominal binder in place. He is requiring the IV Dilaudid pain medication. He is tolerating full liquid diet. He does report some nausea. No vomiting. Afebrile. WBC has increased from 16.4-27.36 hemoglobin 14 PHYSICAL EXAM: VITAL SIGNS: Reviewed GENERAL: Well-developed in no acute distress. HEENT: No sclera icterus. Extraocular movements grossly intact. Moist buccal m ucosa. Head is atraumatic, normocephalic. Hears conversational speech. No nasal drainage. NECK: Supple without lymphadenopathy. CHEST: Non-labored respirations and equal bilateral excursions. CARDIOVASCULAR: Palpable 2+ radial pulses. ABDOMEN: Soft. Nondistended. Lower abdominal tenderness with palpation. No evidence of cellulitis or infection. Bruising noted at the lower abdomen. MUSCULOSKELETAL: No clubbing or cyanosis. NEUROLOGIC: No focal or lateralizing signs. Cranial nerves II through XII grossly intact. PSYCH: Appropriate affect. Alert and oriented to person, place and time. SKIN: Well perfused. Good skin turgor. ASSESSMENT: 1. Post surgical pain 2. Rectus sheath hematoma 3. Small pneumoperitoneum noted on CAT scan secondary to patient's surgery 4. History of diverticulitis status post lower anterior resection on 01/03/[address] Ferguson PLAN: -Continue abdominal binder -Continue ice packs as needed to abdomen for pain -Continue conservative management -Continue full liquid diet -Continue Simethicone drops scheduled Physician Career Law Clerk note has been reviewed by physician. Signing provider agrees with the documented findings, assessment, and plan of care. Objective - Vital Signs Vital signs: Vital Signs Temp 97.5 F L 01/15/21 07:52 Pulse 85 01/15/21 07:52 Resp 17 01/15/21 07:52 BP 117/80 01/15/21 07:52 Pulse Ox 90 L 01/15/21 07:52 Intake & Output 01/14/21 01/15/21 01/15/21 18:59 06:59 18:59 Intake Total 480 Output Total 300 Balance 180 Weight 83.461 kg Intake: Oral 480 Output: Urine 300 Other: Voiding Method Urinal # Voids 300 1 - Labs CBC & Chem 7: 01/15/21 05:50 01/15/21 05:50 Labs: Abnormal Lab Results - Last 24 Hours (Table) 01/14/21 01/15/21 01/15/21 Range/Units 06:24 05:50 05:50 WBC 27.36 H (4.50-10.00) X 10*3/uL RBC 4.30 L (4.40-5.60) X 10*6/uL MCV 99.8 H (80.0-97.0) fL MCH 32.6 H (27.0-32.0) pg RDW 16.0 H (11.5-14.5) % Plt Count 550 H (140-440) X 10*3/uL Plt Count Comment INCREASED A Immature Gran # 0.26 H (0.00-0.04) X 10*3/uL Neutrophils # 25.54 H (1.80-7.70) X 10*3/uL Lymphocytes # 0.66 L (0.90-5.00) X 10*3/uL Eosinophils # 0 L (0.04-0.35) X 10*3/uL Basophils # 0.14 H (0.00-0.10) X 10*3/uL Carbon Dioxide 20.1 L (21.6-31.8) mmol/L BUN 50.0 H (9.0-27.0) mg/dL Est GFR (CKD-EPI)AfAm 56.2 L (60.0-200.0) Est GFR (CKD-EPI)NonAf 48.5 L (60.0-200.0) BUN/Creatinine Ratio 35.71 H (12.00-20.00) Ratio Glucose 199 H (70-110) mg/dL Calcium 8.6 L (8.7-10.3) mg/dL Total Bilirubin 3.0 H (0.3-1.2) mg/dL Total Protein 5.7 L (6.2-8.2) g/dL Albumin 3.50 L (3.80-4.90) g/dL Albumin/Globulin Ratio 1.59 L (1.60-3.17) g/dL Ur Specific [place] >1.050 H (1.001-1.035) Urine Protein Trace H (Negative) Urine Ketones Trace H (Negative) Microbiology - Last 24 Hours (Table) 01/14/21 06:29 Blood Culture - Preliminary Blood No Growth after 24 hours
[2021-01-15] MEDS: SODIUM CHLORIDE 0.9% 1,000 ML IV SCH (12:45)
[2021-01-15] MEDS: ONDANSETRON 4 MG/2 ML VIAL IVP PRN (15:54)
--- NOTE | 2021-01-15 17:29 | PN ---
PROGRESS NOTE DATE OF SERVICE: 01/15/2021 This 75-year-old gentleman who recently had abdominal surgery was admitted with abdominal pain after a period of exertion. The patient also had some fluid loculation in the CT scan. The patient is being treated with empiric antibiotics. Surgery and Infectious Disease following the patient closely. No fever. No cough. Patient has urinary difficulties at this time. PHYSICAL EXAMINATION: Alert and oriented x2. Pulse 85. Blood pressure 117/80, respirations 17, temperature 97.4, pulse ox 98 percent on room air. HEENT: Conjunctivae normal. Neck: No JVD. Cardiovascular: S1, S2 muffled. Respiratory: Breath sounds diminished at the bases. A few scattered rhonchi. Abdomen: Soft. Mild diffuse discomfort on palpation. No guarding. No rigidity. No mass palpable. Bowel sounds present. Legs are no edema. No swelling. Nervous System: No focal deficits. LABS: WBC 27.36 and platelets are 550. Sodium 140, potassium 409. UA noted. ASSESSMENT: 1. Postoperative abdominal pain status post exertion. 2. Fluid collection in the CT scan, rule out abscess. 3. Increased WBC. 4. History of recent elective colectomy for diverticulitis and chronic constipation. 5. Increased WBC. 6. History of gastroesophageal reflux disease. 7. History of psoriasis. 8. History of constipation. 9. History of diverticulitis. 10.History of bladder cancer. 11.History of benign prostatic hypertrophy. 12.History of MRSA. 13.History of appendectomy. 14.History of bladder surgery. 15.History of nicotine dependence. 16.FULL CODE. RECOMMENDATIONS AND DISCUSSION: Continue current medication, continue to monitor. Symptomatic treatment. Otherwise at this time, I recommend IV antibiotics. Closely follow with Surgery and Infectious Disease. Guarded prognosis. Further recommendations to follow. MMODL / IJN: [id number] /
--- NOTE | 2021-01-15 18:58 | PN ---
PROGRESS NOTE DATE OF SERVICE: 01/15/2021. REASON FOR FOLLOWUP: Intraabdominal infection. INTERVAL HISTORY: The patient is afebrile, has been complaining of abdominal pain, also feeling nauseated and he has had an episode of vomiting. Denies having any chest pain. No shortness of breath or cough. He is complaining of some urinary retention on [place] catheter. PHYSICAL EXAMINATION: Blood pressure is 116/67, pulse of 99, temperature 98. He is 90% on room air. The patient is an elderly male lying in bed, in no distress. Respiratory system: Unlabored breathing, clear to auscultation anteriorly. Heart S1, S2. Regular rhythm. Abdomen: Soft. No tenderness. Remains to be distended and tender. Extremities: Normal feet. LABS: Hemoglobin is 10, WBC 27.2, BUN of 50, creatinine 1.4. DIAGNOSTIC IMPRESSION AND PLAN: Patient with recent abdominal surgery with right hemicolectomy, now with evidence of elevated white count, abdominal pain and possible abscess. The patient on Zosyn. There was concern for possible abscess, and plan for drainage of the collection should be sent for culture and continue supportive care. MMODL / IJN: [id number] / MTDD
[2021-01-16] MEDS: HYDROmorphone 1 MG/ML 1 ML SYRINGE IVP PRN ×4 (02:50→23:58)
--- NOTE | 2021-01-16 04:01 | XR ---
EXAMINATION TYPE: XR chest 1V portable DATE OF EXAM: 01/16/2021 COMPARISON: 01/14/2021 HISTORY: Short of breath TECHNIQUE: Single view FINDINGS: There is some mild infiltrate in the left lower lobe. There is no heart failure. Thoracic a rafa is atheromatous. There are chest leads. IMPRESSION: There is some mild infiltrate in the left lower lobe behind the heart that is increased c ompared to old exam. There is clearing of the pneumoperitoneum. No heart failure seen.
[2021-01-16 04:16] LABS: Basophils # (A) 0.1 k/uL (0-0.2); Basophils % (A) 0 %; Eosinophils % (A) 0 %; HCT 40.7 % (39.0-53.0); HGB 13.5 gm/dL (13.0-17.5); Hypochromasia Slight; Lymphocytes # (A) 0.6 k/uL (1.0-4.8); Lymphocytes % (A) 3 %; MCHC 33.1 g/dL (31.0-37.0); MCV 99.7 fL (80.0-100.0); Macrocytosis Slight; Mean Platelet Volume 8.4; Monocytes # (A) 0.9 k/uL (0-1.0); Monocytes % (A) 4 %; Neutrophils % (A) 93 %; Platelet Count 621 k/uL (150-450); RBC 4.08 m/uL (4.30-5.90); RDW 15.7 % (11.5-15.5); WBC 22.8 k/uL (3.8-10.6)
[2021-01-16 04:22] LABS: INR 1.1 (<1.2); Prothrombin Time 11.7 sec (9.0-12.0)
[2021-01-16 04:52] LABS: ALT 18 U/L (4-49); AST 31 U/L (17-59); African American GFR (CKD) 30 (>60 ml/min/1.73 sqM); Alkaline Phosphatase 105 U/L (38-126); Anion Gap 14 mmol/L; Blood Urea Nitrogen 80 mg/dL (9-20); Calcium 9.5 mg/dL (8.4-10.2); Carbon Dioxide 23 mmol/L (22-30); Chloride 104 mmol/L (98-107); Globulin 2.9 g/dL; Glucose 162 mg/dL (74-99); Magnesium 2.7 mg/dL (1.6-2.3); Non-African American GFR(CKD) 26 (>60 ml/min/1.73 sqM); Potassium 4.7 mmol/L (3.5-5.1); Sodium 141 mmol/L (137-145); Total Bilirubin 2.5 mg/dL (0.2-1.3); Total Protein 5.9 g/dL (6.3-8.2)
[2021-01-16] MEDS ORDERED: SODIUM CHLORIDE 0.9% 500 ML 500 ML IV ONE ×2 (06:22→16:29)
[2021-01-16] MEDS: SODIUM CHLORIDE 0.9% 1,000 ML IV SCH ×2 (06:59→20:33)
[2021-01-16] MEDS: SIMETHICONE 40 MG/0.6 ML DROPS 2,000 MG/30 ML BOTTLE PO SCH ×4 (08:29→20:33)
[2021-01-16] MEDS: PIPERACILLIN-TAZOBACTAM 3.375 GM in SODIUM CHLORIDE 0.9% 100 ML IVPB SCH ×3 (08:29→23:35)
[2021-01-16] MEDS: HEPARIN SODIUM,PORCINE/PF 5,000 UNIT/0.5 ML SYRINGE SQ SCH ×2 (08:29→20:33)
[2021-01-16] MEDS ORDERED: HYDROcodone/APAP 5-325MG 1 EACH TAB PO PRN (09:52)
--- NOTE | 2021-01-16 13:24 | P.PN ---
Subjective Progress Note Date: 01/16/21 CHIEF COMPLAINT: Abdominal pain HISTORY OF PRESENT ILLNESS: Surgical service is following regards to patient's abdominal pain and seroma. He is requiring the IV Dilaudid pain medication. He is tolerating full liquid diet. Patient has a congested cough chest x-ray showing mild infiltrate left lower lobe. He is tolerating full liquids. White count 22.8 lactic acid 4.4 he is on IV Zosyn. He has been given fluid boluses. He is requiring IV Dilaudid every 3 hours. Patient seen and examined with Dr. grigsby PHYSICAL EXAM: VITAL SIGNS: Reviewed GENERAL: Well-developed in no acute distress. HEENT: No sclera icterus. Extraocular movements grossly intact. Moist buccal mucosa. Head is atraumatic, normocephalic. Hears conversational speech. No nasal drainage. NECK: Supple without lymphadenopathy. CHEST: Non-labored respirations and equal bilateral excursions. CARDIOVASCULAR: Palpable 2+ radial pulses. ABDOMEN: Soft. Nondistended. Lower abdominal tenderness with palpation. No evidence of cellulitis or infection at incision site. Bruising noted at the lower abdomen. MUSCULOSKELETAL: No clubbing or cyanosis. NEUROLOGIC: No focal or lateralizing signs. Cranial nerves II through XII grossly intact. PSYCH: Appropriate affect. Alert and oriented to person, place and time. SKIN: Well perfused. Good skin turgor. ASSESSMENT: 1. Postoperative seroma 2. Small pneumoperitoneum noted on CAT scan secondary to patient's surgery 3. History of diverticulitis status post lower anterior resection on 01/03/[address] Grigsby 4. Cough and congestion. Possible pneumonia. PLAN: -Increase IV Dilaudid 1 mg every 2 hours as needed for pain -[place] 5 mg one every 4 hours as needed for pain -Add DuoNeb updrafts 4 times a day for cough and congestion -Add incentive spirometer -Consult pulmonary service for patient's cough and congestion with possible pneumonia -Continue antibiotics -Continue full liquid diet -Encouraged patient to increase activity Physician Shipping Technician note has been reviewed by physician. Signing provider agrees with the documented findings, assessment, and plan of care. Objective - Vital Signs Vital signs: Vital Signs Temp 98.0 F 01/16/21 06:55 Pulse 104 H 01/16/21 06:55 Resp 16 01/16/21 06:55 BP 134/95 01/16/21 06:55 Pulse Ox 91 L 01/16/21 06:55 Intake & Output 01/15/21 01/16/21 01/16/21 18:59 06:59 18:59 Other: Voiding Method Urinal # Voids 2 1 - Labs CBC & Chem 7: 01/16/21 03:58 01/16/21 03:58 Labs: Abnormal Lab Results - Last 24 Hours (Table) 01/16/21 01/16/21 01/16/21 Range/Units 03:58 03:58 03:58 WBC 22.8 H (3.8-10.6) k/uL RBC 4.08 L (4.30-5.90) m/uL RDW 15.7 H (11.5-15.5) % Plt Count 621 H (150-450) k/uL Neutrophils # 21.0 H (1.3-7.7) k/uL Lymphocytes # 0.6 L (1.0-4.8) k/uL BUN 80 H (9-20) mg/dL Creatinine 2.38 H (0.66-1.25) mg/dL Glucose 162 H (74-99) mg/dL Plasma Lactic Acid Te 4.4 H* (0.7-2.0) mmol/L Magnesium 2.7 H (1.6-2.3) mg/dL Total Bilirubin 2.5 H (0.2-1.3) mg/dL Total Protein 5.9 L (6.3-8.2) g/dL Albumin 3.0 L (3.5-5.0) g/dL 01/16/21 01/16/21 Range/Units 07:17 11:00 WBC (3.8-10.6) k/uL RBC (4.30-5.90) m/uL RDW (11.5-15.5) % Plt Count (150-450) k/uL Neutrophils # (1.3-7.7) k/uL Lymphocytes # (1.0-4.8) k/uL BUN (9-20) mg/dL Creatinine (0.66-1.25) mg/dL Glucose (74-99) mg/dL Plasma Lactic Acid Te 3.9 H* 3.3 H* (0.7-2.0) mmol/L Magnesium (1.6-2.3) mg/dL Total Bilirubin (0.2-1.3) mg/dL Total Protein (6.3-8.2) g/dL Albumin (3.5-5.0) g/dL Microbiology - Last 24 Hours (Table) 01/14/21 06:29 Blood Culture - Preliminary Blood No Growth after 48 hours
[2021-01-16] MEDS: IPRATROPIUM-ALBUTEROL 3 ML NEB INHALATION SCH ×2 (13:49→19:22)
[2021-01-16] MEDS ORDERED: ONDANSETRON 4 MG/2 ML VIAL IVP PRN (16:05)
[2021-01-16] MEDS ORDERED: SODIUM CHLORIDE 0.9% 1,000 ML IV ONE (16:33)
[2021-01-16 16:36] LABS: Glucose,Whole Blood 120 mg/dL (75-99)
--- NOTE | 2021-01-16 16:37 | P.PN ---
Subjective 75-year-old male with recent abdominal surgery was readmitted as his surgical incision and decision was the history and patient was believed to have some fluid collection with possible vertigo abscesses because of that reason patient was admitted to the hospital. Patient is presently on Zosyn infectious disease is following the patient. Patient respiratory status has worsened patient is on 4 L of oxygen later in the day patient is requiring more and more oxygen chest x-ray was obtained which showed increased infiltrate in the left lower lobe most probably atelectasis patient is already on antibiotics which is Zosyn which is being continued at this time patient has some gurgling sounds lobe possibly of condition patient does have elevated lactic acid which persisted will give a 1 L bolus of fluid and see how he responds to it patient appears to be tachypneic from a acidosis patient is on 75 mL per hour of fluid. Pulmonology was consu lted earlier. Patient is being transferred to stepdown unit at this time. is not taking deep is because of her severe abdominal pain Constitutional: Denied any fatigue denied any fever. Cardio vascular: denied any chest pain, palpitations Gastrointestinal denied any nausea vomiting patient has severe abdominal pain Pulmonary: Denied any shortness of breath cough Neurologic denied any new focal deficits All inpatient medications were reviewed and appropriate changes in these medications as dictated in the interval history and assessment and plan. PHYSICAL EXAMINATION: GENERAL: The patient is alert and oriented x3, not in any acute distress. Well developed, well nourished. HEENT: Pupils are round and equally reacting to light. EOMI. No scleral icterus. No conjunctival pallor. Normocephalic, atraumatic. No pharyngeal erythema. No thyromegaly. CARDIOVASCULAR: S1 and S2 present. No murmurs, rubs, or gallops. PULMONARY: Diminished breath sounds some gurgling in the throat area. ABDOMEN: Abdominal binder in place. MUSCULOSKELETAL: No joint swelling or deformity. EXTREMITIES: No cyanosis, clubbing, or pedal edema. NEUROLOGICAL: Gross neurological examination did not reveal any focal deficits. SKIN: No rashes. Assessment and plan -Acute hypoxic respiratory failure: Most probably multifactorial and secondary to sepsis, lactic is doses for which I'm giving IV fluids, low possibility of pulmonary edema. Patient also has atelectasis as patient is unable to take deep breath. Low possibility of pneumonia although patient is on Zosyn which covers pneumonia as well. Patient does have history of COPD used to be a smoker in the past. Pulmonology was consulted by general surgery. Patient will be started transferred to [facility] stepdown unit -Abdominal pain postoperative fluid collection possibility of the abscesses that cannot be ruled out patient is on Zosyn which will be continued. Patient had diverticulitis in the past for which patient underwent colectomy -Gastroesophageal reflux disease -Due to prophylaxis with subcutaneous heparin which will be continued Objective - Vital Signs Vital signs: Vital Signs Temp 97.7 F 01/16/21 13:35 Pulse 118 H 01/16/21 13:58 Resp 22 01/16/21 13:58 BP 139/97 01/16/21 13:35 Pulse Ox 86 L 01/16/21 13:35 Intake & Output 01/15/21 01/16/21 01/16/21 18:59 06:59 18:59 Other: Voiding Method Urinal # Voids 2 1 - Labs CBC & Chem 7: 01/16/21 03:58 01/16/21 03:58 Labs: Abnormal Lab Results - Last 24 Hours (Table) 01/16/21 01/16/21 01/16/21 Range/Units 03:58 03:58 03:58 WBC 22.8 H (3.8-10.6) k/uL RBC 4.08 L (4.30-5.90) m/uL RDW 15.7 H (11.5-15.5) % Plt Count 621 H (150-450) k/uL Neutrophils # 21.0 H (1.3-7.7) k/uL Lymphocytes # 0.6 L (1.0-4.8) k/uL BUN 80 H (9-20) mg/dL Creatinine 2.38 H (0.66-1.25) mg/dL Glucose 162 H (74-99) mg/dL Plasma Lactic Acid Te 4.4 H* (0.7-2.0) mmol/L Magnesium 2.7 H (1.6-2.3) mg/dL Total Bilirubin 2.5 H (0.2-1.3) mg/dL Total Protein 5.9 L (6.3-8.2) g/dL Albumin 3.0 L (3.5-5.0) g/dL 01/16/21 01/16/21 01/16/21 Range/Units 07:17 11:00 14:11 WBC (3.8-10.6) k/uL RBC (4.30-5.90) m/uL RDW (11.5-15.5) % Plt Count (150-450) k/uL Neutrophils # (1.3-7.7) k/uL Lymphocytes # (1.0-4.8) k/uL BUN (9-20) mg/dL Creatinine (0.66-1.25) mg/dL Glucose (74-99) mg/dL Plasma Lactic Acid Te 3.9 H* 3.3 H* 3.9 H* (0.7-2.0) mmol/L Magnesium (1.6-2.3) mg/dL Total Bilirubin (0.2-1.3) mg/dL Total Protein (6.3-8.2) g/dL Albumin (3.5-5.0) g/dL Microbiology - Last 24 Hours (Table) 01/14/21 06:29 Blood Culture - Preliminary Blood No Growth after 48 hours
[2021-01-16 17:19] LABS: ABG Base Excess -6.2 mmol/L; ABG HCO3 19 mmol/L (21-25); ABG Oxygen Saturation 95.6 % (94-97); ABG PCO2 32 mmHg (35-45); ABG PH 7.38 (7.35-7.45); ABG PO2 81 mmHg (83-108); ABG TCO2 20 mmol/L (19-24)
[2021-01-16 17:21] LABS: Allen Test Performed? Yes
[2021-01-16] MEDS: ONDANSETRON 4 MG/2 ML VIAL IVP PRN (17:37)
--- NOTE | 2021-01-16 18:02 | PN ---
PROGRESS NOTE DATE OF SERVICE: 01/16/2021 REASON FOR FOLLOWUP: Intraabdominal abscess. INTERVAL HISTORY: Patient did have worsening of his respiratory status for which the patient has been transferred down to the ICU. Patient is tachycardic, however, hemodynamically stable. Not on pressor support. Has been complaining of abdominal pain, shortness of breath. He did have a cough and coughing up some dark green sputum. No vomiting has been noticed or diarrhea. PHYSICAL EXAMINATION: Blood pressure 139/97, pulse of 100. Temperature is 97.7. He is 91% on non- rebreather. General description is an elderly male lying in bed in no distress. Respiratory system: Coarse breath sounds bilaterally. No wheeze. Heart S1, S2 tachycardia. Abdomen: Soft, mildly distended. No guarding. No rigidity. Extremities: No edema of the feet. LABS: Hemoglobin 13.1, white count 2.8, down from yesterday of 27.36. Lactic acid is elevated. BUN of 18, creatinine is 2.38. DIAGNOSTIC IMPRESSION AND PLAN: Patient with sepsis, possible abdominal source in this patient who did have recent lower anterior resection on 01/06/2021 for diverticulitis and concern for possible abscess. Surgery following the patient with worsening respiratory status and benefit from drainage, patient is covered broadly with Zosyn to continue and monitor clinical course closely. MMODL / IJN: [id number] / MTDD
[2021-01-16] MEDS ORDERED: SODIUM CHLORIDE 0.9% 2,000 ML IV ONE (18:53)
[2021-01-16] MEDS: METOCLOPRAMIDE 5 MG/ML 2 ML VIAL IVP PRN (23:59)
[2021-01-17 03:47] LABS: Anisocytosis Slight; HCT 35.9 % (39.0-53.0); HGB 11.6 gm/dL (13.0-17.5); Hypochromasia Slight; MCH 32.2 pg (25.0-35.0); MCHC 32.3 g/dL (31.0-37.0); MCV 99.8 fL (80.0-100.0); Macrocytosis Slight; Mean Platelet Volume 8.3; Platelet Count 504 k/uL (150-450); WBC 11.6 k/uL (3.8-10.6)
[2021-01-17 04:03] LABS: Albumin 2.6 g/dL (3.5-5.0); Calcium 8.6 mg/dL (8.4-10.2); Potassium 4.9 mmol/L (3.5-5.1); Total Bilirubin 2.9 mg/dL (0.2-1.3)
[2021-01-17] MEDS: HYDROmorphone 1 MG/ML 1 ML SYRINGE IVP PRN ×4 (04:23→23:36)
[2021-01-17 05:04] LABS: Band Neutrophils % 19 %; Lymphocytes # (M) 0.23 k/uL (1.0-4.8); Metamyelocytes # (M) 0.23 k/uL (0); Metamyelocytes % 2 %; Monocytes # (M) 0.12 k/uL (0-1.0); Neutrophils % (M) 76 %; Nucleated Red Blood Cells 0 /100 WBC (0-0); Total Cells Counted 100
[2021-01-17] MEDS: IPRATROPIUM-ALBUTEROL 3 ML NEB INHALATION SCH ×4 (07:20→20:23)
--- NOTE | 2021-01-17 07:57 | XR ---
EXAMINATION TYPE: XR chest 1V portable DATE OF EXAM: 01/17/2021 COMPARISON: NONE HISTORY: 01/16/2021 TECHNIQUE: Single frontal view of the chest is obtained. FINDINGS: Low lung volumes. Enteric catheter projects at the distal esophagus. This should be advanc ed. Overlying leads. Heart size is stable. Atherosclerotic aorta. No pleural effusion or pneumothorax . Patchy perihilar and infrahilar airspace opacities slightly increased since prior exam.. IMPRESSION: 1. Patchy perihilar and infrahilar airspace opacities slightly increased since prior exam. No pleural effusion or pneumothorax. 2. Enteric catheter projects over the distal esophagus. This should be advanced.
[2021-01-17] MEDS: PIPERACILLIN-TAZOBACTAM 3.375 GM in SODIUM CHLORIDE 0.9% 100 ML IVPB SCH ×3 (09:11→23:39)
[2021-01-17] MEDS: HEPARIN SODIUM,PORCINE/PF 5,000 UNIT/0.5 ML SYRINGE SQ SCH ×2 (09:11→19:57)
[2021-01-17] MEDS: METOCLOPRAMIDE 5 MG/ML 2 ML VIAL IVP PRN (09:12)
--- NOTE | 2021-01-17 09:36 | P.CNPUL ---
History of Present Illness Consult date: 01/17/21 Requesting physician: Esteban Sahu Reason for consult: dyspnea, hypoxemia Chief complaint: Abdominal pain History of present illness: This is a 75-year-old gentleman with a known history of diverticulitis and had recently undergone a colon resection on 01/03/2021. He was subsequently disc harged home and doing fairly well. He was readmitted on 01/14/2021 after he reported lifting a mattress at home and felt a pop in his abdomen. He has had significant abdominal discomfort since then. Computed tomography scan of the abdomen revealed a small amount of pneumoperitoneum. There is also evidence of his surgical history. There is a small amount of fluid within the paracolic gutters. Within the pelvis there is fluid collection anterior to the sacrum and measures 2.6 cm. This could reflect ascites with internal air. Small abscesses difficult to exclude. There is additional fluid with the smallest of a right hemipelvis measuring 2.5 cm may reflect additional ascites with a however abscess is not excluded. Chest x-ray at that time revealed no evidence of acute pulmonary disease. Pneumoperitoneum was identified. Blood cultures revealed no growth. White count 11.6. Hemoglobin 11.6. Sodium 144. Potassium 4.9. Creatinine 3.47. Initially and was 0.8. Lactic acid 2.3. The patient admitted to the regular medical floor. Yesterday he developed increasing shortness of breath with hypoxemia. He is placed on BiPAP 12/5 in the 100% FiO2. Blood gases revealed a pO2 of 81, pCO2 of 32. PH 7.38. He was subsequently transferred to the intensive care unit and is seen now today in consultation. He is quite hard of hearing. He is answering appropriately. He remains on BiPAP 12/5 and 90% FiO2 to maintain O2 saturations in the low 90s. Chest x-ray nonrevealing patchy perihilar and infrahilar airspace opacities increase compared to previous. No pleural effusion or pneumothorax. Nasogastric tube was placed with 2 L of fluid returned. He has received 3 L of fluid resuscitation. He is currently on heparin for DVT prophylaxis. Bronchodilators. Antibiotics in the form of Zosyn. Review of Systems REVIEW OF SYSTEMS: CONSTITUTIONAL: Denies any recent significant weight loss or weight gain. EYES: Denies change in vision. EARS, NOSE, MOUTH, THROAT: Denies headaches, denies sore throat. CARDIOVASCULAR: Denies chest pain, palpitations or syncopal episodes. RESPIRATORY: Denies shortness of breath, cough, congestion or hemoptysis. GASTROINTESTINAL: Positive for abdominal pain, recent surgery GENITOURINARY: Denies hematuria, denies infections. MUSKULOSKELETAL: Denies pain, denies swelling. INTEGUMENTARY: Denies rash, denies eczema. NEUROLOGICAL: Denies recent memory loss, no recent seizure activity. PSYCHIATRIC: Denies anxiety, denies depression. HEMATOLOGIC/LYMPHATIC: Denies anemia, denies enlarged lymph nodes. 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 History of Any Multi-Drug Resistant Organisms: MRSA Date of last positivie culture/infection: jul 2017 MDRO Source:: rt ear Past Surgical History: Appendectomy, Bladder Surgery, Ear Surgery, Hernia Repair Additional Past Surgical History / Comment(s): right ear surgery. Bowel resection 01/02/2021. Past Anesthesia/Blood Transfusion Reactions: No Reported Reaction Past Psychological History: No Psychological Hx Reported Smoking Status: Former smoker Past Alcohol Use History: Occasional Additional Past Alcohol Use History / Comment(s): quit smoking 30 yrs ago, smoked 1 ppd, started age 19. drinks 6 beers/week Past Drug Use History: None Reported - Past Family History Mother Family Medical History: No Reported History Medications and Allergies Home Medications Medication Instructions Recorded Confirmed Type Omeprazole 20 mg PO DAILY 02/13/19 01/14/21 History HYDROcodone/APAP 5-325MG [[place] 1 tab PO Q6HR PRN 3 Days #12 tab 01/08/21 01/14/21 Rx 5-325] Ibuprofen [Motrin] 600 mg PO Q8HR PRN #30 tab 01/08/21 01/14/21 Rx Calcipotriene [Dovonex] 1 applic TOPICAL BID PRN 01/14/21 01/14/21 History Clobetasol Propionate [Temovate 1 applic TOPICAL BID PRN 01/14/21 01/14/21 History 0.05% Cream] Allergies Allergy/AdvReac Type Severity Reaction Status Date / Time Dccxmxv-Cmy-Xtg Reductase AdvReac Unknown Unknown Verified 01/14/21 10:02 Inhibitor Physical Exam Vitals: Vital Signs Temp Pulse Pulse Resp BP BP Pulse Ox 01/17/21 07:30 113 H 01/17/21 07:20 108 H 01/17/21 07:00 106 H 27 H 112/85 93 L 01/17/21 06:30 107 H 28 H 105/75 95 01/17/21 06:00 108 H 25 H 106/74 97 01/17/21 05:30 107 H 29 H 99 01/17/21 05:00 105 H 26 H 91/60 93 L 01/17/21 04:30 105 H 27 H 107/74 96 01/17/21 04:00 99.6 F 106 H 28 H 111/77 95 01/17/21 03:30 107 H 28 H 111/84 97 01/17/21 03:00 110 H 34 H 121/84 94 L 01/17/21 02:30 105 H 28 H 122/80 95 01/17/21 02:00 106 H 30 H 120/87 94 L 01/17/21 01:30 105 H 29 H 132/75 97 01/17/21 01:00 105 H 30 H 122/81 98 01/17/21 00:30 105 H 31 H 132/83 96 01/17/21 00:11 102 H 28 H 96 01/17/21 00:00 98.0 F 105 H 31 H 128/83 97 01/16/21 23:30 103 H 32 H 118/79 96 01/16/21 23:00 102 H 31 H 115/72 96 01/16/21 22:30 101 H 28 H 111/77 96 01/16/21 22:00 103 H 27 H 118/78 97 01/16/21 21:30 104 H 29 H 125/78 96 01/16/21 21:00 105 H 32 H 124/77 97 01/16/21 20:30 101 H 35 H 142/90 98 01/16/21 20:00 98.9 F 102 H 31 H 135/89 99 01/16/21 19:35 100 01/16/21 19:30 103 H 22 124/82 97 01/16/21 19:22 102 H 01/16/21 19:00 105 H 35 H 92/46 94 L 01/16/21 18:30 112 H 49 H 92 L 01/16/21 18:00 105 H 38 H 139/100 98 01/16/21 17:30 107 H 41 H 120/81 01/16/21 17:00 114 H 50 H 144/100 95 01/16/21 16:33 115 H 51 H 01/16/21 13:58 118 H 22 01/16/21 13:49 114 H 22 01/16/21 13:35 97.7 F 112 H 24 139/97 86 L Intake and Output 01/16/21 01/17/21 01/17/21 22:59 06:59 14:59 Intake Total 3225 775 Output Total 2120 670 Balance 1105 105 Intake: IV 1225 675 Sodium Chloride 0.9% 1, 1225 675 000 ml @ 75 mls/hr IV . [id number] [facility] Rx#:[id number] Intake, IV Titration 2000 100 Amount Piperacillin-Tazobactam 3 100 .375 gm In Sodium Chloride 0.9% 100 ml @ 25 mls/hr IVPB Q8HR [facility] Rx# :[id number] Sodium Chloride 0.9% 2, 2000 000 ml @ 999 mls/hr IV . Q2H1M [facility] Rx#:[id number] Output: Gastric Drainage 2000 450 Urine 120 220 Other: Voiding Method Indwelling Catheter Indwelling Catheter Weight 84 kg GENERAL EXAM: Alert, pleasant 75-year-old gentleman, on BiPAP 12/5 and 90% FiO2, fairly comfortable in no apparent distress. HEAD: Normocephalic. EYES: Normal reaction of pupils, equal size. NOSE: Clear with pink turbinates. THROAT: No erythema or exudates. NECK: No masses, no JVD. CHEST: No chest wall deformity. LUNGS: Equal air entry with crackles in the posterior bases. CVS: S1 and S2 normal with no audible murmur, regular rhythm. ABDOMEN: Abdominal incision clean dry well approximated. [place] intact. Binder in place. SPINE: No scoliosis or deformity SKIN: No rashes CENTRAL NERVOUS SYSTEM: No focal deficits, tone is normal in all 4 extremities. EXTREMITIES: There is no peripheral edema. No clubbing, no cyanosis. Peripheral pulses are intact. Results - Laboratory Findings CBC and BMP: 01/17/21 02:58 01/17/21 02:58 ABG ABG pH 7.38 (7.35-7.45) 01/16/21 17:17 ABG pCO2 32 mmHg (35-45) L 01/16/21 17:17 ABG pO2 81 mmHg (83-108) L 01/16/21 17:17 ABG O2 Saturation 95.6 % (94-97) 01/16/21 17:17 PT/INR, D-dimer PT 11.7 sec (9.0-12.0) 01/16/21 04:02 INR 1.1 (<1.2) 01/16/21 04:02 Abnormal lab findings: Abnormal Labs 01/14/21 01/14/21 01/14/21 06:22 06:22 06:24 WBC 16.4 H RBC 4.10 L Hgb Hct MCV MCH RDW 15.8 H Plt Count 488 H Plt Count Comment Immature Gran # Neutrophils # 13.8 H Neutrophils # (Manual) Lymphocytes # Lymphocytes # (Manual) Eosinophils # Basophils # Metamyelocytes # (Man) ABG pCO2 ABG pO2 ABG HCO3 Chloride 108 H Carbon Dioxide BUN 27 H Creatinine Est GFR (CKD-EPI)AfAm Est GFR (CKD-EPI)NonAf BUN/Creatinine Ratio Glucose 126 H POC Glucose (mg/dL) Plasma Lactic Acid Te Calcium Magnesium Total Bilirubin 1.4 H Total Protein Albumin Albumin/Globulin Ratio Ur Specific [place] >1.050 H Urine Protein Trace H Urine Ketones Trace H 01/15/21 01/15/21 01/16/21 05:50 05:50 03:58 WBC 27.36 H 22.8 H RBC 4.30 L 4.08 L Hgb Hct MCV 99.8 H MCH 32.6 H RDW 16.0 H 15.7 H Plt Count 550 H 621 H Plt Count Comment INCREASED A Immature Gran # 0.26 H Neutrophils # 25.54 H 21.0 H Neutrophils # (Manual) Lymphocytes # 0.66 L 0.6 L Lymphocytes # (Manual) Eosinophils # 0 L Basophils # 0.14 H Metamyelocytes # (Man) ABG pCO2 ABG pO2 ABG HCO3 Chloride Carbon Dioxide 20.1 L BUN 50.0 H Creatinine Est GFR (CKD-EPI)AfAm 56.2 L Est GFR (CKD-EPI)NonAf 48.5 L BUN/Creatinine Ratio 35.71 H Glucose 199 H POC Glucose (mg/dL) Plasma Lactic Acid Te Calcium 8.6 L Magnesium Total Bilirubin 3.0 H Total Protein 5.7 L Albumin 3.50 L Albumin/Globulin Ratio 1.59 L Ur Specific [place] Urine Protein Urine Ketones 01/16/21 01/16/21 01/16/21 03:58 03:58 07:17 WBC RBC Hgb Hct MCV MCH RDW Plt Count Plt Count Comment Immature Gran # Neutrophils # Neutrophils # (Manual) Lymphocytes # Lymphocytes # (Manual) Eosinophils # Basophils # Metamyelocytes # (Man) ABG pCO2 ABG pO2 ABG HCO3 Chloride Carbon Dioxide BUN 80 H Creatinine 2.38 H Est GFR (CKD-EPI)AfAm Est GFR (CKD-EPI)NonAf BUN/Creatinine Ratio Glucose 162 H POC Glucose (mg/dL) Plasma Lactic Acid Te 4.4 H* 3.9 H* Calcium Magnesium 2.7 H Total Bilirubin 2.5 H Total Protein 5.9 L Albumin 3.0 L Albumin/Globulin Ratio Ur Specific [place] Urine Protein Urine Ketones 01/16/21 01/16/21 01/16/21 11:00 14:11 16:32 WBC RBC Hgb Hct MCV MCH RDW Plt Count Plt Count Comment Immature Gran # Neutrophils # Neutrophils # (Manual) Lymphocytes # Lymphocytes # (Manual) Eosinophils # Basophils # Metamyelocytes # (Man) ABG pCO2 ABG pO2 ABG HCO3 Chloride Carbon Dioxide BUN Creatinine Est GFR (CKD-EPI)AfAm Est GFR (CKD-EPI)NonAf BUN/Creatinine Ratio Glucose POC Glucose (mg/dL) 120 H Plasma Lactic Acid Te 3.3 H* 3.9 H* Calcium Magnesium Total Bilirubin Total Protein Albumin Albumin/Globulin Ratio Ur Specific [place] Urine Protein Urine Ketones 01/16/21 01/16/21 01/16/21 17:17 17:29 20:24 WBC RBC Hgb Hct MCV MCH RDW Plt Count Plt Count Comment Immature Gran # Neutrophils # Neutrophils # (Manual) Lymphocytes # Lymphocytes # (Manual) Eosinophils # Basophils # Metamyelocytes # (Man) ABG pCO2 32 L ABG pO2 81 L ABG HCO3 19 L Chloride Carbon Dioxide BUN Creatinine Est GFR (CKD-EPI)AfAm Est GFR (CKD-EPI)NonAf BUN/Creatinine Ratio Glucose POC Glucose (mg/dL) Plasma Lactic Acid Te 5.2 H* 3.3 H* Calcium Magnesium Total Bilirubin Total Protein Albumin Albumin/Globulin Ratio Ur Specific [place] Urine Protein Urine Ketones 01/17/21 01/17/21 01/17/21 00:12 02:58 02:58 WBC 11.6 H RBC 3.60 L Hgb 11.6 L Hct 35.9 L MCV MCH RDW 16.0 H Plt Count 504 H Plt Count Comment Immature Gran # Neutrophils # Neutrophils # (Manual) 11.00 H Lymphocytes # Lymphocytes # (Manual) 0.23 L Eosinophils # Basophils # Metamyelocytes # (Man) 0.23 H ABG pCO2 ABG pO2 ABG HCO3 Chloride Carbon Dioxide BUN Creatinine Est GFR (CKD-EPI)AfAm Est GFR (CKD-EPI)NonAf BUN/Creatinine Ratio Glucose POC Glucose (mg/dL) Plasma Lactic Acid Te 2.1 H* 2.3 H* Calcium Magnesium Total Bilirubin Total Protein Albumin Albumin/Globulin Ratio Ur Specific [place] Urine Protein Urine Ketones 01/17/21 02:58 WBC RBC Hgb Hct MCV MCH RDW Plt Count Plt Count Comment Immature Gran # Neutrophils # Neutrophils # (Manual) Lymphocytes # Lymphocytes # (Manual) Eosinophils # Basophils # Metamyelocytes # (Man) ABG pCO2 ABG pO2 ABG HCO3 Chloride 109 H Carbon Dioxide BUN 99 H Creatinine 3.47 H Est GFR (CKD-EPI)AfAm Est GFR (CKD-EPI)NonAf BUN/Creatinine Ratio Glucose 131 H POC Glucose (mg/dL) Plasma Lactic Acid Te Calcium Magnesium Total Bilirubin 2.9 H Total Protein 5.0 L Albumin 2.6 L Albumin/Globulin Ratio Ur Specific [place] Urine Protein Urine Ketones - Diagnostic Findings Chest x-ray: image reviewed Assessment and Plan Assessment: 1 Abdominal pain secondary to small amount of fluid accumulation in the paracolic gutters. Within the pelvis her's fluid collection anterior to the s acrum measures 2.6 cm. Additional fluid with small focus of air in the right hemipelvis measuring 2.5 cm. Suspect ascites, hematoma, cannot completely rule out abscess and currently on Zosyn 2 Recent low anterior resection secondary to diverticulitis on 01/03/2021 3 Acute hypoxemic respiratory failure secondary to fluid volume overload currently on BiPAP 12/5 and 90% FiO2. 4 Acute kidney injury 5 History of bladder cancer 6 History gastroesophageal reflux disease 7 Former smoker Plan: The patient was seen and evaluated by Dr. Golden Chest x-ray and labs reviewed Nephrology consult Check BNP, pro-calcitonin IPap increased to 16 Incentive spirometry when off BiPAP Continue bronchodilators Increase his activity as tolerated We will continue to follow and make further recommendations based on his clinical status I, the cosigning physician, performed a history & physical examination of the patient. Lungs sounds with crackles in the bilateral bases. Maintaining good O2 saturations in the 90s on BiPAP 12/5 and 90% FiO2. I discussed the assessment and plan of care with my nurse practitioner, Dorothy Hurtado. I attest to the above consultation as dictated by her. Time with Patient: Greater than 30
[2021-01-17] MEDS: SIMETHICONE 40 MG/0.6 ML DROPS 2,000 MG/30 ML BOTTLE PO SCH ×4 (09:52→19:58)
[2021-01-17] MEDS: SODIUM CHLORIDE 0.9% 1,000 ML IV SCH ×2 (09:53→22:27)
[2021-01-17] MEDS: IOPAMIDOL CONTRAST (ORAL USE) VIAL PO PRN ×2 (10:38→11:31)
--- NOTE | 2021-01-17 10:53 | XR ---
EXAMINATION TYPE: XR abdomen 1V DATE OF EXAM: 01/17/2021 10:42 AM CLINICAL HISTORY: Reevaluate NG tube TECHNIQUE: Single supine KUB image of the abdomen is obtained. COMPARISON: None. FINDINGS: Enteric catheter is seen with its tip projecting over the left upper abdomen adjacent to th e left hemidiaphragm, likely within the stomach. Surgical clips are seen in the mid abdomen. Mildly d ilated loops of small bowel likely due to postsurgical ileus. IMPRESSION: 1. Enteric catheter projects over the left upper abdomen adjacent to the left hemidiaphragm likely in the stomach.
[2021-01-17] MEDS ORDERED: SODIUM CHLORIDE 0.9% 500 ML 500 ML IV ONE (11:13)
[2021-01-17 11:25] LABS: ABG Base Excess -3.5 mmol/L; ABG HCO3 20 mmol/L (21-25); ABG Oxygen Saturation 92.8 % (94-97); ABG PCO2 29 mmHg (35-45); ABG PH 7.45 (7.35-7.45); ABG PO2 63 mmHg (83-108); ABG TCO2 21 mmol/L (19-24); Allen Test Performed? Yes
[2021-01-17] MEDS ORDERED: METOCLOPRAMIDE 5 MG/ML 2 ML VIAL IVP STA (11:48)
--- NOTE | 2021-01-17 12:43 | CT ---
EXAMINATION TYPE: CT abdomen pelvis wo con DATE OF EXAM: 01/17/2021 COMPARISON: 01/14/2021 INDICATION: pain, recent bowel resection DLP: 868.7 mGycm, Automated exposure control for dose reduction was used. CONTRAST: 0 mL of Isovue 300. Study performed with Oral Contrast TECHNIQUE: Axial images were obtained from above the diaphragm to the pubic rami in the axial plane a t 5 mm thick sections. Reconstructed images are reviewed on the computer in the coronal plane. FINDINGS: Limited CT sections are obtained the lung bases. Bilateral lower lobe consolidations are present. Co rrelate for pneumonia. Atelectasis could be considered.. CT ABDOMEN: Small amount of postsurgical pneumoperitoneum may be present in the right upper quadrant. Continued monitoring is recommended. Small amount of fluid may be in the paracolic gutters. Small am ount of fluid is within the pelvis. No suspicious abscess formation is identified. Liver: Normal Spleen: Normal Pancreas: Normal Adrenal glands: The adrenal glands are normal. Gallbladder: Small gallstone may be present. Kidneys: No masses are evident. No hydronephrosis is present. No cysts are present. Delayed images were obtained through the kidneys, which remain unremarkable. Aorta: Vascular calcification is within the aorta. Inferior vena cava: Normal. CT PELVIS: Postsurgical changes are within the sigmoid colon nonspecific loops of bowel are present. Oral contra st is within the proximal small bowel loops does not extend to the ileum. There are loops of bowel wh ich are incompletely distended or lack oral contrast limiting their evaluation. Appendix: Normal as visualized. Urinary bladder: Normal. Genitourinary structures: Decompressed with a [place] catheter. Osseous structures: No suspicious lytic or sclerotic lesions. IMPRESSIONS: 1. Minimal pneumoperitoneum likely postsurgical in nature. 2. Mild fluid within the paracolic gutters and pelvis. 3. Bilateral lower lobe consolidations with air bronchograms. Correlate for pneumonia. 4. Cholelithiasis
--- NOTE | 2021-01-17 13:45 | P.PN ---
Subjective Progress Note Date: 01/17/21 CHIEF COMPLAINT: Abdominal pain HISTORY OF PRESENT ILLNESS: Surgical service is following regards to patient's abdominal pain and seroma. Patient required to be transferred to the ICU yesterday. He had evidence of respiratory failure. Decreased oxygen saturation. Hypotensive and tachycardic. Elevated lactic acid level. He is currently on BiPAP. Patient has been given multiple fluid boluses. He had NG tube placed for abdominal distention and had a little over 3 L of output. Patient evaluated by pulmonary service. They felt that patient's acute hypoxic respiratory failure was due to fluid overload. Patient had computed tomography scan of the abdomen and pelvis with oral contrast showing minimal pneumoperitoneum likely postsurgical in nature. Mild fluid within the paracolic gutters and pelvis. Bilateral lower lobe consolidation with air bronchograms. Correlate for pneumonia. And cholelithiasis. No evidence of abscess. Patient seen and examined with Dr. grigsby PHYSICAL EXAM: VITAL SIGNS: Reviewed GENERAL: Well-developed in no acute distress. HEENT: No sclera icterus. Extraocular movements grossly intact. Moist buccal mucosa. Head is atraumatic, normocephalic. Hears conversational speech. No nasal drainage. NECK: Supple without lymphadenopathy. CHEST: Non-labored respirations and equal bilateral excursions. CARDIOVASCULAR: Palpable 2+ radial pulses. ABDOMEN: Soft. Mild abdominal distention. No evidence of cellulitis or infection at incision site. Bruising noted at the lower abdomen. MUSCULOSKELETAL: No clubbing or cyanosis. NEUROLOGIC: No focal or lateralizing signs. Cranial nerves II through XII grossly intact. PSYCH: Appropriate affect. Alert and oriented to person, place and time. SKIN: Well perfused. Good skin turgor. ASSESSMENT: 1. Postoperative seroma. No evidence of abscess on repeat computed tomography scan 2. Small pneumoperitoneum noted on CAT scan secondary to patient's surgery 3. History of diverticulitis status post lower anterior resection on 01/03/[address] Grigsby 4. Cough and congestion. Possible pneumonia. 5. Acute hypoxic respiratory failure PLAN: -Continue ICU management -Continue supportive care -Continue pain medication as needed -Continue antibiotics per ID Physician Moisture Tester note has been reviewed by physician. Signing provider agrees with the documented findings, assessment, and plan of care. Objective - Vital Signs Vital signs: Vital Signs Temp 98.7 F 01/17/21 08:00 Pulse 108 H 06/30/21 11:07 Resp 32 H 01/17/21 10:00 BP 92/64 01/17/21 10:00 Pulse Ox 97 01/17/21 10:00 Intake & Output 01/16/21 01/17/21 01/17/21 18:59 06:59 18:59 Intake Total 1000 3000 270 Output Total 0 2790 387 Balance 1000 210 -117 Weight 84 kg Intake: IV 1000 900 270 Piperacillin-Tazobactam 3 100 .375 gm In Sodium Chloride 0.9% 100 ml @ 25 mls/hr IVPB Q8HR [facility] Rx# :[id number] Sodium Chloride 0.9% 1, 1000 900 170 000 ml @ 75 mls/hr IV . [id number] [facility] Rx#:[id number] Intake, IV Titration 2100 Amount Piperacillin-Tazobactam 3 100 .375 gm In Sodium Chloride 0.9% 100 ml @ 25 mls/hr IVPB Q8HR [facility] Rx# :[id number] Sodium Chloride 0.9% 2, 2000 000 ml @ 999 mls/hr IV . Q2H1M [facility] Rx#:[id number] Output: Gastric Drainage 2450 350 Urine 0 340 37 Other: Voiding Method Indwelling Catheter - Labs CBC & Chem 7: 01/17/21 02:58 01/17/21 02:58 Labs: Abnormal Lab Results - Last 24 Hours (Table) 01/16/21 01/16/21 01/16/21 Range/Units 14:11 16:32 17:17 WBC (3.8-10.6) k/uL RBC (4.30-5.90) m/uL Hgb (13.0-17.5) gm/dL Hct (39.0-53.0) % RDW (11.5-15.5) % Plt Count (150-450) k/uL Neutrophils # (Manual) (1.3-7.7) k/uL Lymphocytes # (Manual) (1.0-4.8) k/uL Metamyelocytes # (Man) (0) k/uL ABG pCO2 32 L (35-45) mmHg ABG pO2 81 L (83-108) mmHg ABG HCO3 19 L (21-25) mmol/L ABG O2 Saturation (94-97) % Chloride (98-107) mmol/L BUN (9-20) mg/dL Creatinine (0.66-1.25) mg/dL Glucose (74-99) mg/dL POC Glucose (mg/dL) 120 H (75-99) mg/dL Plasma Lactic Acid Te 3.9 H* (0.7-2.0) mmol/L Total Bilirubin (0.2-1.3) mg/dL Total Protein (6.3-8.2) g/dL Albumin (3.5-5.0) g/dL 01/16/21 01/16/21 01/17/21 Range/Units 17:29 20:24 00:12 WBC (3.8-10.6) k/uL RBC (4.30-5.90) m/uL Hgb (13.0-17.5) gm/dL Hct (39.0-53.0) % RDW (11.5-15.5) % Plt Count (150-450) k/uL Neutrophils # (Manual) (1.3-7.7) k/uL Lymphocytes # (Manual) (1.0-4.8) k/uL Metamyelocytes # (Man) (0) k/uL ABG pCO2 (35-45) mmHg ABG pO2 (83-108) mmHg ABG HCO3 (21-25) mmol/L ABG O2 Saturation (94-97) % Chloride (98-107) mmol/L BUN (9-20) mg/dL Creatinine (0.66-1.25) mg/dL Glucose (74-99) mg/dL POC Glucose (mg/dL) (75-99) mg/dL Plasma Lactic Acid Te 5.2 H* 3.3 H* 2.1 H* (0.7-2.0) mmol/L Total Bilirubin (0.2-1.3) mg/dL Total Protein (6.3-8.2) g/dL Albumin (3.5-5.0) g/dL 01/17/21 01/17/21 01/17/21 Range/Units 02:58 02:58 02:58 WBC 11.6 H (3.8-10.6) k/uL RBC 3.60 L (4.30-5.90) m/uL Hgb 11.6 L (13.0-17.5) gm/dL Hct 35.9 L (39.0-53.0) % RDW 16.0 H (11.5-15.5) % Plt Count 504 H (150-450) k/uL Neutrophils # (Manual) 11.00 H (1.3-7.7) k/uL Lymphocytes # (Manual) 0.23 L (1.0-4.8) k/uL Metamyelocytes # (Man) 0.23 H (0) k/uL ABG pCO2 (35-45) mmHg ABG pO2 (83-108) mmHg ABG HCO3 (21-25) mmol/L ABG O2 Saturation (94-97) % Chloride 109 H (98-107) mmol/L BUN 99 H (9-20) mg/dL Creatinine 3.47 H (0.66-1.25) mg/dL Glucose 131 H (74-99) mg/dL POC Glucose (mg/dL) (75-99) mg/dL Plasma Lactic Acid Te 2.3 H* (0.7-2.0) mmol/L Total Bilirubin 2.9 H (0.2-1.3) mg/dL Total Protein 5.0 L (6.3-8.2) g/dL Albumin 2.6 L (3.5-5.0) g/dL 01/17/21 Range/Units 11:23 WBC (3.8-10.6) k/uL RBC (4.30-5.90) m/uL Hgb (13.0-17.5) gm/dL Hct (39.0-53.0) % RDW (11.5-15.5) % Plt Count (150-450) k/uL Neutrophils # (Manual) (1.3-7.7) k/uL Lymphocytes # (Manual) (1.0-4.8) k/uL Metamyelocytes # (Man) (0) k/uL ABG pCO2 29 L (35-45) mmHg ABG pO2 63 L (83-108) mmHg ABG HCO3 20 L (21-25) mmol/L ABG O2 Saturation 92.8 L (94-97) % Chloride (98-107) mmol/L BUN (9-20) mg/dL Creatinine (0.66-1.25) mg/dL Glucose (74-99) mg/dL POC Glucose (mg/dL) (75-99) mg/dL Plasma Lactic Acid Te (0.7-2.0) mmol/L Total Bilirubin (0.2-1.3) mg/dL Total Protein (6.3-8.2) g/dL Albumin (3.5-5.0) g/dL Microbiology - Last 24 Hours (Table) 01/14/21 06:29 Blood Culture - Preliminary Blood No Growth after 72 hours
--- NOTE | 2021-01-17 14:13 | CONS ---
CONSULTATION REASON FOR CONSULT: Renal failure. HISTORY OF PRESENT ILLNESS: The patient is a 75-year-old male with history of recent colon resection on 01/03/2021. The patient was discharged home and he was readmitted with complaints of abdominal pain. It appears that patient lifted a mattress and felt a sudden pop in his abdomen and has had significant pain since then. The patient has been hypotensive. Blood pressure has been borderline with systolic in the 80s. He has had significantly elevated lactic acid level with lactic acid of 4.4 on initial admission. It is down to 2.3 now. The patient has received 3 L of fluid bolus. Current blood pressure 85/70. Patient's serum creatinine has worsened since admission with creatinine at 0.8 on initial admission and now up to 3.47. Urine output is low with last few hours urine output has been at 5-15 mL an hour. The patient had been on NSAIDs at home. However, creatinine was 0.8 on initial admission. The patient is being taken down for CT of the abdomen. The initial CT on admission on January 14 showed a small amount of pneumoperitoneum fluid in the paracolic gutters and fluid collection in the pelvis was noted. Possibility of abscess being considered. Patient has had increasing oxygen requirements. Currently maintained on BiPAP. His chest x-ray shows developing infiltrate in the left lower lobe, no pulmonary vascular congestion noted. PAST MEDICAL HISTORY: Diverticulitis, history of bladder cancer, BPH, history of colon resection recently. PAST SURGICAL HISTORY: Appendectomy, ear surgery, colon resection 01/02/2021, hernia repair. SOCIAL HISTORY: Patient is a former smoker. No history of drug abuse. He drinks about 6 beers a week. MEDICATIONS: Medications prior to admission included Motrin, , omeprazole, [place]. ALLERGIES: INCLUDE STATINS, REACTION TYPE NOT KNOWN. REVIEW OF SYSTEMS: As per HPI. Other systems negative. PHYSICAL EXAMINATION: On examination, patient is currently on BiPAP. He is awake, but lethargic. Blood pressure 93/47. Heart rate 112 per minute. He is afebrile. Examination of the heart S1, S2. Examination of lungs, decreased breath sounds at the bases. Abdomen is soft. Abdominal binder in place. Incision is intact per nursing staff. Examination of lower extremities shows no significant edema. ASTRONAUTICAL ENGINEER exam: Patient has been following commands. LAB: Show sodium 144, potassium 4.9, chloride 109, CO2 is 23, BUN 99, serum creatinine 3.47, hemoglobin 11.6 g/dL. UA shows trace protein, trace ketones. ASSESSMENT: 1. Acute kidney injury, acute tubular necrosis currently oliguric secondary to hypotension. No significant obstructive uropathy noted on initial CT scan. Repeat CT scan currently pending. The patient has a [place] catheter. He has received 3 L of fluid boluses. Blood pressure is still low. He will need to be started on pressors. No nephrotoxic agents on board. I will repeat another 500 mL fluid bolus and if patient remains hypotensive, he will be started on pressors. 2. Acute hypoxic respiratory failure. Chest x-ray showing infiltrates. No significant congestive heart failure noted on chest x-ray. The patient is maintained on empiric antibiotics. 3. Abdominal pain, possible underlying seroma versus abscess. 4. Status post recent colon resection on 01/03/2021. PLAN: Repeat 500 mL bolus. Add pressors. Agree with repeating CT scan of the abdomen. Continue to avoid nephrotoxic medications. The patient was on NSAIDs at home prior to admission, these are currently on hold. Continue empiric antibiotics as well. Thank you for this consultation. Will continue to follow the patient with you during his hospitalization. MMODL / IJN: [id number] /
--- NOTE | 2021-01-17 14:57 | P.PN ---
Subjective 75-year-old male with recent abdominal surgery was readmitted as his surgical incision and decision was the history and patient was believed to have some fluid collection with possible vertigo abscesses because of that reason patient was admitted to the hospital. Patient is presently on Zosyn infectious disease is following the patient. Patient respiratory status has worsened patient is on 4 L of oxygen later in the day patient is requiring more and more oxygen chest x-ray was obtained which showed increased infiltrate in the left lower lobe most probably atelectasis patient is already on antibiotics which is Zosyn which is being continued at this time patient has some gurgling sounds lobe possibly of condition patient does have elevated lactic acid which persisted will give a 1 L bolus of fluid and see how he responds to it patient appears to be tachypneic from a acidosis patient is on 75 mL per hour of fluid. Pulmonology was consu lted earlier. Patient is being transferred to stepdown unit at this time. is not taking deep is because of her severe abdominal pain 01/17/2021 Patient is presently on BiPAP for acute respiratory failure. Patient had a CT of the abdomen and repeat 1 which showed bilateral lower lobe pneumonia with air bronchogram patient is already on Zosyn which is being continued. Patient has ileus and has significant output since yesterday because it and patient received IV fluid boluses about 3 L and patient will be switched to a 1 25 mL of normal saline. Patient barely has any urine output, creatinine continue to get worse nephrology evaluated the patient. Patient is presently not on any pressor support. Constitutional: Denied any fatigue denied any fever. Cardio vascular: denied any chest pain, palpitations Gastrointestinal denied any nausea vomiting patient has severe abdominal pain Pulmonary: Denied any shortness of breath cough Neurologic denied any new focal deficits All inpatient medications were reviewed and appropriate changes in these medications as dictated in the interval history and assessment and plan. PHYSICAL EXAMINATION: GENERAL: The patient is alert and oriented x3, not in any acute distress. Well developed, well nourished. HEENT: Pupils are round and equally reacting to light. EOMI. No scleral icterus. No conjunctival pallor. Normocephalic, atraumatic. No pharyngeal erythema. No thyromegaly. CARDIOVASCULAR: S1 and S2 present. No murmurs, rubs, or gallops. PULMONARY: Diminished breath sounds some gurgling in the throat area. ABDOMEN: Abdominal binder in place. MUSCULOSKELETAL: No joint swelling or deformity. EXTREMITIES: No cyanosis, clubbing, or pedal edema. NEUROLOGICAL: Gross neurological examination did not reveal any focal deficits. SKIN: No rashes. Assessment and plan -Severe sepsis probably secondary to bilateral lower lobe pneumonia patient will be continued on Zosyn. -Ileus patient has an NG tube with significant output. -Acute renal failure probably secondary to acute blood necrosis, hypotension is receiving IV fluids as mentioned above received IV fluid boluses -Acute hypoxic respiratory failure requiring BiPAP: Secondary to sepsis, pneumonia. -Abdominal pain postoperative fluid collection possibility of the abscesses that cannot be ruled out patient is on Zosyn which will be continued. Patient had diverticulitis in the past for which patient underwent colectomy -Gastroesophageal reflux disease -DVT prophylaxis with subcutaneous heparin which will be continued Objective - Vital Signs Vital signs: Vital Signs Temp 98.1 F 01/17/21 12:00 Pulse 105 H 01/17/21 14:00 Resp 34 H 01/17/21 14:00 BP 122/79 01/17/21 14:00 Pulse Ox 100 01/17/21 14:00 Intake & Output 01/16/21 01/17/21 01/17/21 18:59 06:59 18:59 Intake Total 1000 3000 2170 Output Total 0 2790 1431 Balance 1000 210 739 Weight 84 kg Intake: IV 8974 149 1314 Piperacillin-Tazobactam 3 100 .375 gm In Sodium Chloride 0.9% 100 ml @ 25 mls/hr IVPB Q8HR [facility] Rx# :[id number] Sodium Chloride 0.9% 1, 1000 900 520 000 ml @ 75 mls/hr IV . [id number] [facility] Rx#:[id number] Sodium Chloride 0.9% 500 500 ml 500 ml @ 999 mls/hr IV .Q31M [facility] Rx#:[id number] Intake, IV Titration 2100 Amount Piperacillin-Tazobactam 3 100 .375 gm In Sodium Chloride 0.9% 100 ml @ 25 mls/hr IVPB Q8HR [facility] Rx# :[id number] Sodium Chloride 0.9% 2, 2000 000 ml @ 999 mls/hr IV . Q2H1M [facility] Rx#:[id number] Oral 1050 Output: Gastric Drainage 2450 1350 Urine 0 340 81 Other: Voiding Method Indwelling Catheter - Labs CBC & Chem 7: 01/17/21 02:58 01/17/21 02:58 Labs: Abnormal Lab Results - Last 24 Hours (Table) 01/16/21 01/16/21 01/16/21 Range/Units 14:11 16:32 17:17 WBC (3.8-10.6) k/uL RBC (4.30-5.90) m/uL Hgb (13.0-17.5) gm/dL Hct (39.0-53.0) % RDW (11.5-15.5) % Plt Count (150-450) k/uL Neutrophils # (Manual) (1.3-7.7) k/uL Lymphocytes # (Manual) (1.0-4.8) k/uL Metamyelocytes # (Man) (0) k/uL ABG pCO2 32 L (35-45) mmHg ABG pO2 81 L (83-108) mmHg ABG HCO3 19 L (21-25) mmol/L ABG O2 Saturation (94-97) % Chloride (98-107) mmol/L BUN (9-20) mg/dL Creatinine (0.66-1.25) mg/dL Glucose (74-99) mg/dL POC Glucose (mg/dL) 120 H (75-99) mg/dL Plasma Lactic Acid Te 3.9 H* (0.7-2.0) mmol/L Total Bilirubin (0.2-1.3) mg/dL Total Protein (6.3-8.2) g/dL Albumin (3.5-5.0) g/dL 01/16/21 01/16/21 01/17/21 Range/Units 17:29 20:24 00:12 WBC (3.8-10.6) k/uL RBC (4.30-5.90) m/uL Hgb (13.0-17.5) gm/dL Hct (39.0-53.0) % RDW (11.5-15.5) % Plt Count (150-450) k/uL Neutrophils # (Manual) (1.3-7.7) k/uL Lymphocytes # (Manual) (1.0-4.8) k/uL Metamyelocytes # (Man) (0) k/uL ABG pCO2 (35-45) mmHg ABG pO2 (83-108) mmHg ABG HCO3 (21-25) mmol/L ABG O2 Saturation (94-97) % Chloride (98-107) mmol/L BUN (9-20) mg/dL Creatinine (0.66-1.25) mg/dL Glucose (74-99) mg/dL POC Glucose (mg/dL) (75-99) mg/dL Plasma Lactic Acid Te 5.2 H* 3.3 H* 2.1 H* (0.7-2.0) mmol/L Total Bilirubin (0.2-1.3) mg/dL Total Protein (6.3-8.2) g/dL Albumin (3.5-5.0) g/dL 01/17/21 01/17/21 01/17/21 Range/Units 02:58 02:58 02:58 WBC 11.6 H (3.8-10.6) k/uL RBC 3.60 L (4.30-5.90) m/uL Hgb 11.6 L (13.0-17.5) gm/dL Hct 35.9 L (39.0-53.0) % RDW 16.0 H (11.5-15.5) % Plt Count 504 H (150-450) k/uL Neutrophils # (Manual) 11.00 H (1.3-7.7) k/uL Lymphocytes # (Manual) 0.23 L (1.0-4.8) k/uL Metamyelocytes # (Man) 0.23 H (0) k/uL ABG pCO2 (35-45) mmHg ABG pO2 (83-108) mmHg ABG HCO3 (21-25) mmol/L ABG O2 Saturation (94-97) % Chloride 109 H (98-107) mmol/L BUN 99 H (9-20) mg/dL Creatinine 3.47 H (0.66-1.25) mg/dL Glucose 131 H (74-99) mg/dL POC Glucose (mg/dL) (75-99) mg/dL Plasma Lactic Acid Te 2.3 H* (0.7-2.0) mmol/L Total Bilirubin 2.9 H (0.2-1.3) mg/dL Total Protein 5.0 L (6.3-8.2) g/dL Albumin 2.6 L (3.5-5.0) g/dL 01/17/21 Range/Units 11:23 WBC (3.8-10.6) k/uL RBC (4.30-5.90) m/uL Hgb (13.0-17.5) gm/dL Hct (39.0-53.0) % RDW (11.5-15.5) % Plt Count (150-450) k/uL Neutrophils # (Manual) (1.3-7.7) k/uL Lymphocytes # (Manual) (1.0-4.8) k/uL Metamyelocytes # (Man) (0) k/uL ABG pCO2 29 L (35-45) mmHg ABG pO2 63 L (83-108) mmHg ABG HCO3 20 L (21-25) mmol/L ABG O2 Saturation 92.8 L (94-97) % Chloride (98-107) mmol/L BUN (9-20) mg/dL Creatinine (0.66-1.25) mg/dL Glucose (74-99) mg/dL POC Glucose (mg/dL) (75-99) mg/dL Plasma Lactic Acid Te (0.7-2.0) mmol/L Total Bilirubin (0.2-1.3) mg/dL Total Protein (6.3-8.2) g/dL Albumin (3.5-5.0) g/dL Microbiology - Last 24 Hours (Table) 01/14/21 06:29 Blood Culture - Preliminary Blood No Growth after 72 hours
[2021-01-17] MEDS: METOCLOPRAMIDE 5 MG/ML 2 ML VIAL IVP SCH ×3 (15:42→23:35)
[2021-01-17] MEDS ORDERED: SODIUM CHLORIDE 0.9% 1,000 ML IV ONE (16:08)
--- NOTE | 2021-01-17 16:59 | PN ---
PROGRESS NOTE DATE OF SERVICE: 01/17/2021 REASON FOR FOLLOWUP: Abdominal abscess and possible aspiration pneumonia. INTERVAL HISTORY: The patient is afebrile. The patient is currently in the ICU on high-flow oxygen. The patient did have significant output from his NG yesterday. Patient is slightly lethargic, unable to provide any history. No vomiting has been reported or any other changes in clinical condition reported by the nursing staff. PHYSICAL EXAMINATION: Blood pressure 107/56, pulse 101. Temperature 98.1. He is 94% on 2 L high-flow oxygen. General description is an elderly male lying in bed in no distress. Respiratory system: Unlabored breathing, coarse breath sounds bilaterally, no wheeze. Heart S1, S2. Regular rate and rhythm. Abdomen soft, no tenderness. Mild distention. Extremities: No edema of the feet. LABS: Hemoglobin 11.6, white count 11.6, BUN of 99, creatinine 3.47. DIAGNOSTIC IMPRESSION AND PLAN: Patient with acute respiratory failure which is multifactorial in this patient with possible component of aspiration pneumonitis with concern for underlying abdominal abscess in this patient who did have significant output from his NG. The patient is currently covered with Zosyn to continue. Waiting for further recommendation from general surgery and continue supportive care. MMODL / IJN: [id number] / MTDD
[2021-01-18] MEDS: HYDROmorphone 1 MG/ML 1 ML SYRINGE IVP PRN ×7 (02:22→18:05)
[2021-01-18] MEDS: METOCLOPRAMIDE 5 MG/ML 2 ML VIAL IVP SCH ×5 (03:51→20:18)
[2021-01-18 04:58] LABS: Anisocytosis Slight; HCT 28.4 % (39.0-53.0); Hypochromasia Slight; MCH 31.2 pg (25.0-35.0); MCHC 31.3 g/dL (31.0-37.0); MCV 99.6 fL (80.0-100.0); Macrocytosis Slight; Mean Platelet Volume 8.6; Platelet Count 394 k/uL (150-450); RBC 2.85 m/uL (4.30-5.90); RDW 16.7 % (11.5-15.5); WBC 12.1 k/uL (3.8-10.6)
[2021-01-18 05:12] LABS: ALT 16 U/L (4-49); AST 46 U/L (17-59); Albumin 2.1 g/dL (3.5-5.0); Alkaline Phosphatase 57 U/L (38-126); Anion Gap 14 mmol/L; Calcium 7.6 mg/dL (8.4-10.2); Carbon Dioxide 19 mmol/L (22-30); Chloride 115 mmol/L (98-107); Glucose 112 mg/dL (74-99); Magnesium 2.9 mg/dL (1.6-2.3); Phosphorus 5.1 mg/dL (2.5-4.5); Potassium 4.2 mmol/L (3.5-5.1); Sodium 148 mmol/L (137-145); Total Bilirubin 3.2 mg/dL (0.2-1.3); Total Protein 4.5 g/dL (6.3-8.2)
[2021-01-18 05:13] LABS: HGB 8.9 gm/dL (13.0-17.5)
[2021-01-18 05:19] LABS: African American GFR (CKD) 13 (>60 ml/min/1.73 sqM); Non-African American GFR(CKD) 11 (>60 ml/min/1.73 sqM)
[2021-01-18 05:25] LABS: Blood Urea Nitrogen 122 mg/dL (9-20)
[2021-01-18] MEDS: SODIUM CHLORIDE 0.9% 1,000 ML IV SCH (05:53)
[2021-01-18 06:01] LABS: Band Neutrophils % 25 %; Eosinophils # (M) 0.12 k/uL (0-0.7); Lymphocytes # (M) 1.21 k/uL (1.0-4.8); Metamyelocytes # (M) 0.48 k/uL (0); Metamyelocytes % 4 %; Monocytes # (M) 0.24 k/uL (0-1.0); Neutrophils % (M) 58 %; Nucleated Red Blood Cells 0 /100 WBC (0-0); Total Cells Counted 100
[2021-01-18] MEDS: NOREPINEPHRINE 4 MG in SODIUM CHLORIDE 0.9% 250 ML IV SCH ×3 (07:03→20:10)
--- NOTE | 2021-01-18 07:42 | XR ---
EXAMINATION TYPE: XR chest 1V portable DATE OF EXAM: 01/18/2021 COMPARISON: 01/17/2021 HISTORY: Follow-up TECHNIQUE: Single frontal view of the chest is obtained. FINDINGS: Low lung volumes. Enteric catheter has been removed. Overlying leads. Heart size is stable . Atherosclerotic aorta. No pleural effusion or pneumothorax. Patchy perihilar and infrahilar airspac e opacities increased since prior exam.. IMPRESSION: 1. Patchy perihilar and infrahilar airspace opacities increased since prior exam. Findings are sugges tive of infectious/inflammatory processes, such as pneumonia. Consider Covid.
[2021-01-18] MEDS: IPRATROPIUM-ALBUTEROL 3 ML NEB INHALATION SCH ×4 (08:06→19:06)
[2021-01-18] MEDS: HEPARIN SODIUM,PORCINE/PF 5,000 UNIT/0.5 ML SYRINGE SQ SCH ×2 (09:47→20:16)
[2021-01-18] MEDS: PIPERACILLIN-TAZOBACTAM 3.375 GM in SODIUM CHLORIDE 0.9% 100 ML IVPB SCH ×2 (09:48→20:19)
[2021-01-18] MEDS: SIMETHICONE 40 MG/0.6 ML DROPS 2,000 MG/30 ML BOTTLE PO SCH ×3 (10:03→18:06)
[2021-01-18 10:41] LABS: Cholesterol 120 mg/dL (0-200); HDL Cholesterol <5 mg/dL (40.0-60.0)
--- NOTE | 2021-01-18 11:01 | P.PN ---
Subjective Progress Note Date: 01/18/21 Principal diagnosis: Abdominal pain, hypoxemia This is a 75-year-old gentleman with a known history of diverticulitis and had recently undergone a colon resection on 01/03/2021. He was subsequently discharged home and doing fairly well. He was readmitted on 01/14/2021 after he reported lifting a mattress at home and felt a pop in his abdomen. He has had significant abdominal discomfort since then. Computed tomography scan of the abdomen revealed a small amount of pneumoperitoneum. There is also evidence of his surgical history. There is a small amount of fluid within the paracolic gutters. Within the pelvis there is fluid collection anterior to the sacrum and measures 2.6 cm. This could reflect ascites with internal air. Small abscesses difficult to exclude. There is additional fluid with the smallest of a right hemipelvis measuring 2.5 cm may reflect additional ascites with a however abscess is not excluded. Chest x-ray at that time revealed no evidence of acute pulmonary disease. Pneumoperitoneum was identified. Blood cultures revealed no growth. White count 11.6. Hemoglobin 11.6. Sodium 144. Potassium 4.9. Creatinine 3.47. Initially and was 0.8. Lactic acid 2.3. The patient admitted to the regular medical floor. Yesterday he developed increasing shortness of breath with hypoxemia. He is placed on BiPAP 12/5 in the 100% FiO2. Blood gases revealed a pO2 of 81, pCO2 of 32. PH 7.38. He was subsequently transferred to the intensive care unit and is seen now today in consultation. He is quite hard of hearing. He is answering appropriately. He remains on BiPAP 12/5 and 90% FiO2 to maintain O2 saturations in the low 90s. Chest x-ray nonrevealing patchy perihilar and infrahilar airspace opacities increase compared to previous. No pleural effusion or pneumothorax. Nasogastric tube was placed with 2 L of fluid returned. He has received 3 L of fluid resuscitation. He is currently on heparin for DVT prophylaxis. Bronchod ilators. Antibiotics in the form of Zosyn. The patient is seen today 01/18/2021 in follow-up in the intensive care unit. He was trialed on high flow nasal cannula at 8 L early this morning while laying flat during his bath he became quite hypoxemic and he was up to 10 and then 15 L. He was subsequently placed back on BiPAP 16/5 and 60% FiO2. He is currently resting fairly comfortably in bed. Chest x-ray showing patchy perihilar and infrahilar airspace opacities. Increase compared to previous. He is currently on Zosyn. Blood culture reveals no growth to date. White count 12.1. Hemogl obin 8.9. Sodium 148. Potassium 4.2. BUN 122. Creatinine 4.76. Receiving 0.9 normal saline at 125 ML's per hour. Objective - Vital Signs Vital signs: Vital Signs Temp 98.9 F 01/18/21 08:00 Pulse 90 01/18/21 10:00 Resp 29 H 01/18/21 10:00 BP 112/60 01/18/21 10:00 Pulse Ox 89 L 01/18/21 10:00 Intake & Output 01/17/21 01/18/21 01/18/21 18:59 06:59 18:59 Intake Total 3770 1600 500 Output Total 1541 580 155 Balance 2229 1020 345 Weight 80.9 kg Intake: IV 2720 1600 500 Piperacillin-Tazobactam 3 200 100 .375 gm In Sodium Chloride 0.9% 100 ml @ 25 mls/hr IVPB Q8HR [facility] Rx# :[id number] Sodium Chloride 0.9% 1, 1020 1500 500 000 ml @ 125 mls/hr IV . Q8H [facility] Rx#:[id number] Sodium Chloride 0.9% 1, 1000 000 ml @ 999 mls/hr IV . Q1H1M [facility] Rx#:[id number] Sodium Chloride 0.9% 500 500 ml 500 ml @ 999 mls/hr IV .Q31M [facility] Rx#:[id number] Oral 1050 Output: Gastric Drainage 1350 250 Urine 191 330 155 Other: Voiding Method Indwelling Catheter Indwelling Catheter Indwelling Catheter - Exam GENERAL EXAM: Alert, pleasant 75-year-old gentleman, on BiPAP 16/5 and 60% FiO2, fairly comfortable in no apparent distress. HEAD: Normocephalic. EYES: Normal reaction of pupils, equal size. NOSE: Clear with pink turbinates. THROAT: No erythema or exudates. NECK: No masses, no JVD. CHEST: No chest wall deformity. LUNGS: Equal air entry with crackles in the posterior bases. CVS: S1 and S2 normal with no audible murmur, regular rhythm. ABDOMEN: Abdominal incision clean dry well approximated. [place] intact. Binder in place. SPINE: No scoliosis or deformity SKIN: No rashes CENTRAL NERVOUS SYSTEM: No focal deficits, tone is normal in all 4 extremities. EXTREMITIES: There is no peripheral edema. No clubbing, no cyanosis. Pe ripheral pulses are intact. - Labs CBC & Chem 7: 01/18/21 04:15 01/18/21 04:15 Labs: Abnormal Lab Results - Last 24 Hours (Table) 01/17/21 01/17/21 01/18/21 Range/Units 02:58 11:23 04:15 WBC 12.1 H (3.8-10.6) k/uL RBC 2.85 L (4.30-5.90) m/uL Hgb 8.9 L D (13.0-17.5) gm/dL Hct 28.4 L (39.0-53.0) % RDW 16.7 H (11.5-15.5) % Neutrophils # (Manual) 10.00 H (1.3-7.7) k/uL Metamyelocytes # (Man) 0.48 H (0) k/uL ABG pCO2 29 L (35-45) mmHg ABG pO2 63 L (83-108) mmHg ABG HCO3 20 L (21-25) mmol/L ABG O2 Saturation 92.8 L (94-97) % Sodium (137-145) mmol/L Chloride (98-107) mmol/L Carbon Dioxide (22-30) mmol/L BUN (9-20) mg/dL Creatinine (0.66-1.25) mg/dL Glucose (74-99) mg/dL Calcium (8.4-10.2) mg/dL Phosphorus (2.5-4.5) mg/dL Magnesium (1.6-2.3) mg/dL Total Bilirubin (0.2-1.3) mg/dL Total Protein (6.3-8.2) g/dL Albumin (3.5-5.0) g/dL Triglycerides (0.0-149.0) mg/dL Procalcitonin 57.49 H (0.02-0.09) ng/mL 01/18/21 Range/Units 04:15 WBC (3.8-10.6) k/uL RBC (4.30-5.90) m/uL Hgb (13.0-17.5) gm/dL Hct (39.0-53.0) % RDW (11.5-15.5) % Neutrophils # (Manual) (1.3-7.7) k/uL Metamyelocytes # (Man) (0) k/uL ABG pCO2 (35-45) mmHg ABG pO2 (83-108) mmHg ABG HCO3 (21-25) mmol/L ABG O2 Saturation (94-97) % Sodium 148 H (137-145) mmol/L Chloride 115 H (98-107) mmol/L Carbon Dioxide 19 L (22-30) mmol/L BUN 122 H* (9-20) mg/dL Creatinine 4.76 H (0.66-1.25) mg/dL Glucose 112 H (74-99) mg/dL Calcium 7.6 L (8.4-10.2) mg/dL Phosphorus 5.1 H (2.5-4.5) mg/dL Magnesium 2.9 H (1.6-2.3) mg/dL Total Bilirubin 3.2 H (0.2-1.3) mg/dL Total Protein 4.5 L (6.3-8.2) g/dL Albumin 2.1 L (3.5-5.0) g/dL Triglycerides 194.0 H (0.0-149.0) mg/dL Procalcitonin (0.02-0.09) ng/mL Microbiology - Last 24 Hours (Table) 01/14/21 06:29 Blood Culture - Preliminary Blood No Growth after 96 hours Assessment and Plan Assessment: 1 Abdominal pain secondary to small amount of fluid accumulation in the paracolic gutters. Within the pelvis her's fluid collection anterior to the sacrum measures 2.6 cm. Additional fluid with small focus of air in the right hemipelvis measuring 2.5 cm. Suspect ascites, hematoma, cannot completely rule out abscess and currently on Zosyn 2 Recent low anterior resection secondary to diverticulitis on 01/03/2021 3 Acute hypoxemic respiratory failure secondary to fluid volume overload and possible pneumonia currently on BiPAP 16/5 and 60% FiO2. 4 Acute kidney injury 5 History of bladder cancer 6 History gastroesophageal reflux disease 7 Former smoker Plan: The patient was seen and evaluated by Dr. Golden Chest x-ray and labs reviewed Incentive spirometry when off BiPAP Titrate the FiO2 as tolerated Continue bronchodilators May require TPN Condition guarded We will continue to follow I, the cosigning physician, performed a history & physical examination of the patient. Lungs sounds with crackles in the bilateral bases. Maintaining good O2 saturations in the 90s on BiPAP 16/5 and 60% FiO2. I discussed the assessment and plan of care with my nurse practitioner, Dorothy Hurtado. I attest to the above note as dictated by her.
--- NOTE | 2021-01-18 11:22 | PN ---
PROGRESS NOTE The patient is seen for followup for acute kidney injury. He was admitted to the hospital with abdominal pain after recent colon resection and became hypotensive with acute hypoxic respiratory failure. The patient has been maintained on BiPAP. He received 3.5 to 4 L of fluid bolus and has not needed to start Levophed yet. CT scan did not show any significant abscesses or bleeding. Currently patient is n.p.o. His urine output has been borderline at 20-30 mL an hour. Serum creatinine has increased to 4.76 today with BUN of 122. Currently patient is maintained on saline at 125 mL an hour. Chest x-ray shows patchy infiltrates, most likely pneumonia. Coronavirus PCR is negative. PHYSICAL EXAMINATION: On examination today, blood pressure 126/70, heart rate 89 per minute, he is afebrile. Examination of the heart S1 and S2. Examination of the lungs bilateral breath sounds are heard. Abdomen is soft and nontender. Examination of the lower extremities shows no significant edema. The patient is currently on BIPAP. LABS: Show sodium of 148, potassium 4.2, chloride 115, CO2 is 19, BUN 122, creatinine 4.76, hemoglobin 8.9 g/dL. Lactic acid was 2.3 yesterday. ASSESSMENT: 1. Acute kidney injury, acute tubular necrosis, oliguric with borderline urine output. Currently maintained on IV fluids with significant worsening of renal function over the last 2 days. There are no nephrotoxic medications on board. No evidence of obstruction noted. The initial UA on admission was quite benign. I will continue with the IV fluids for now and repeat labs in a.m. The patient may need to start renal replacement therapy if his labs are significantly worse over the next 24-48 hours. 2. Lactic acidosis currently improved. 3. Acute hypoxic respiratory failure secondary to pneumonia, sepsis. 4. Status post recent colon resection with fluid collection in the pelvis with concern for abscess, being followed by ID and maintained on antibiotics. 5. Hypernatremia. Change IV fluids to half-normal saline. PLAN: Change IV fluids to half-normal saline. If the acidosis is worse tomorrow, I will start a bicarb drip and if renal function continues to worsen over the next 24-48 hours, the patient will need to start renal replacement therapy. MMODL / IJN: [id number] /
--- NOTE | 2021-01-18 11:33 | ECHOF ---
Referral Reason:Evaluate LV function MEASUREMENTS -------- HEIGHT: 182.9 cm WEIGHT: 80.7 kg BP: RVIDd: 3.9 cm (< 3.3) IVSd: 1.0 cm (0.6 - 1.1) LVIDd: 3.9 cm (3.9 - 5.3) LVPWd: 1.7 cm (0.6 - 1.1) IVSs: 1.3 cm LVIDs: 3.4 cm LVPWs: 0.9 cm Ao Diam: 3.7 cm (2.0 - 3.7) RAP: 5.00 mmHg RVSP: 12.51 mmHg FINDINGS -------- Sinus rhythm. This was a techncally difficult study with suboptimal views, , Lumason utilized for enhancement of im ages. LV size, wall thickness and systolic function are normal, with an EF greater than 55%. The left renaldo tricular size is normal. The right ventricle is moderately enlarged. The left atrial size is normal. The right atrial size is normal. 5.0mg OF Lumason UTLIZED: 2 OR MORE WALL SEGMENTS NOT VISUALIZED. The aortic valve was not well visualized. Mild mitral regurgitation is present. The tricuspid valve was not well visualized. The pulmonic valve was not well visualized. There is no pericardial effusion. CONCLUSIONS -------- 1. This was a techncally difficult study with suboptimal views, , Lumason utilized for enhancement of images. 2. LV size, wall thickness and systolic function are normal, with an EF greater than 55%. 3. The left ventricular size is normal. 4. The right ventricle is moderately enlarged. 5. The left atrial size is normal. 6. The right atrial size is normal. 7. 5.0mg OF Lumason UTLIZED: 2 OR MORE WALL SEGMENTS NOT VISUALIZED. 8. The aortic valve was not well visualized. 9. Mild mitral regurgitation is present. 10. The tricuspid valve was not well visualized. 11. The pulmonic valve was not well visualized. 12. There is no pericardial effusion. PHERESIS NURSE: Megan Olivier RDCS
[2021-01-18] MEDS: SODIUM CHLORIDE 0.45% 1,000 ML IV SCH ×2 (12:29→20:12)
[2021-01-18] MEDS ORDERED: LIDOCAINE 1% INJ 10MG/ML (20 ML MDV) ONE (13:12)
--- NOTE | 2021-01-18 13:13 | P.PN ---
Subjective 75-year-old male with recent abdominal surgery was readmitted as his surgical incision and decision was the history and patient was believed to have some fluid collection with possible vertigo abscesses because of that reason patient was admitted to the hospital. Patient is presently on Zosyn infectious disease is following the patient. Patient respiratory status has worsened patient is on 4 L of oxygen later in the day patient is requiring more and more oxygen chest x-ray was obtained which showed increased infiltrate in the left lower lobe most probably atelectasis patient is already on antibiotics which is Zosyn which is being continued at this time patient has some gurgling sounds lobe possibly of condition patient does have elevated lactic acid which persisted will give a 1 L bolus of fluid and see how he responds to it patient appears to be tachypneic from a acidosis patient is on 75 mL per hour of fluid. Pulmonology was consu lted earlier. Patient is being transferred to stepdown unit at this time. is not taking deep is because of her severe abdominal pain 01/17/2021 Patient is presently on BiPAP for acute respiratory failure. Patient had a CT of the abdomen and repeat 1 which showed bilateral lower lobe pneumonia with air bronchogram patient is already on Zosyn which is being continued. Patient has ileus and has significant output since yesterday because it and patient received IV fluid boluses about 3 L and patient will be switched to a 1 25 mL of normal saline. Patient barely has any urine output, creatinine continue to get worse nephrology evaluated the patient. Patient is presently not on any pressor support. 01/18/2021 Patient leukocytosis is improving his renal function continued to get worse and patient started urinating about 40 mL per hour. Patient has acute urinary necrosis this is expected to improve. Patient is hyponatremic and hypochloremic because of that reason patient was started on half-normal saline at 1 25 mL per hour patient doesn't have any GI bleed but drop in hemoglobin secondary to hemodilution 3 affect although drop is significant will closely monitor for any clinical GI bleed. Patient remains on BiPAP. Patient maintains on Zosyn dose of which was cut down because of her renal dysfunction. Review of systems unable to obtain due to his clinical condition All inpatient medications were reviewed and appropriate changes in these medications as dictated in the interval history and assessment and plan. PHYSICAL EXAMINATION: GENERAL: Patient is on BiPAP, resting HEENT: Pupils are round and equally reacting to light. EOMI. No scleral icterus. No conjunctival pallor. Normocephalic, atraumatic. No pharyngeal erythema. No thyromegaly. CARDIOVASCULAR: S1 and S2 present. No murmurs, rubs, or gallops. PULMONARY: Diminished breath sounds some gurgling in the throat area. ABDOMEN: Abdominal binder in place. MUSCULOSKELETAL: No joint swelling or deformity. EXTREMITIES: No cyanosis, clubbing, or pedal edema. NEUROLOGICAL: Gross neurological examination did not reveal any focal deficits. SKIN: No rashes. Assessment and plan -Severe sepsis/shock secondary to bilateral lower lobe pneumonia patient will be continued on Zosyn. -Ileus is to be improving patient had a bowel movement NG tube is out. -Acute renal failure probably secondary to ATN secondary to sepsis and hypotension is receiving IV fluids as mentioned above received IV fluid boluses -Drop in hemoglobin no evidence of acute bleed drop in hemoglobin is secondary to hemodilution 3 affect. -Acute hypoxic respiratory failure requiring BiPAP: Secondary to sepsis, pneumonia. -Abdominal pain postoperative fluid collection possibility of the abscesses that cannot be ruled out patient is on Zosyn which will be continued. Patient had diverticulitis in the past for which patient underwent colectomy -Gastroesophageal reflux disease -DVT prophylaxis with subcutaneous heparin which will be continued Objective - Vital Signs Vital signs: Vital Signs Temp 98.9 F 01/18/21 08:00 Pulse 93 01/18/21 11:30 Resp 27 H 01/18/21 11:30 BP 132/68 01/18/21 11:30 Pulse Ox 92 L 01/18/21 11:30 Intake & Output 01/17/21 01/18/21 01/18/21 18:59 06:59 18:59 Intake Total 3770 1600 875 Output Total 1541 580 355 Balance 2229 1020 520 Weight 80.9 kg 80.9 kg Intake: IV 2720 1600 875 Piperacillin-Tazobactam 3 200 100 .375 gm In Sodium Chloride 0.9% 100 ml @ 25 mls/hr IVPB Q8HR TIFFANIE Rx# :[id number] Sodium Chloride 0.45% 1, 125 000 ml @ 125 mls/hr IV . Q8H TIFFANIE Rx#:[id number] Sodium Chloride 0.9% 1, 1020 1500 750 000 ml @ 125 mls/hr IV . Q8H TIFFANIE Rx#:[id number] Sodium Chloride 0.9% 1, 1000 000 ml @ 999 mls/hr IV . Q1H1M ONE Rx#:[id number] Sodium Chloride 0.9% 500 500 ml 500 ml @ 999 mls/hr IV .Q31M ONE Rx#:[id number] Oral 1050 Output: Gastric Drainage 1350 250 Urine 191 330 355 Other: Voiding Method Indwelling Catheter Indwelling Catheter Indwelling Catheter - Labs CBC & Chem 7: 01/18/21 04:15 01/18/21 04:15 Labs: Abnormal Lab Results - Last 24 Hours (Table) 01/17/21 01/18/21 01/18/21 Range/Units 02:58 04:15 04:15 WBC 12.1 H (3.8-10.6) k/uL RBC 2.85 L (4.30-5.90) m/uL Hgb 8.9 L D (13.0-17.5) gm/dL Hct 28.4 L (39.0-53.0) % RDW 16.7 H (11.5-15.5) % Neutrophils # (Manual) 10.00 H (1.3-7.7) k/uL Metamyelocytes # (Man) 0.48 H (0) k/uL Sodium 148 H (137-145) mmol/L Chloride 115 H (98-107) mmol/L Carbon Dioxide 19 L (22-30) mmol/L BUN 122 H* (9-20) mg/dL Creatinine 4.76 H (0.66-1.25) mg/dL Glucose 112 H (74-99) mg/dL Calcium 7.6 L (8.4-10.2) mg/dL Phosphorus 5.1 H (2.5-4.5) mg/dL Magnesium 2.9 H (1.6-2.3) mg/dL Total Bilirubin 3.2 H (0.2-1.3) mg/dL Total Protein 4.5 L (6.3-8.2) g/dL Albumin 2.1 L (3.5-5.0) g/dL Triglycerides 194.0 H (0.0-149.0) mg/dL Procalcitonin 57.49 H (0.02-0.09) ng/mL Microbiology - Last 24 Hours (Table) 01/14/21 06:29 Blood Culture - Preliminary Blood No Growth after 96 hours
[2021-01-18] MEDS ORDERED: LIDOCAINE 1% INJ 10MG/ML (20 ML MDV) SQ ONE (13:41)
--- NOTE | 2021-01-18 14:02 | XR ---
EXAMINATION TYPE: XR chest 1V confirm line [facility] DATE OF EXAM: 01/18/2021 COMPARISON: 01/18/2021 HISTORY: PICC line TECHNIQUE: Single frontal view of the chest is obtained. FINDINGS: Low lung volumes. Right PICC line with its tip at the distal SVC. Overlying leads. Heart s ize is enlarged, stable. Atherosclerotic aorta. No pleural effusion or pneumothorax. Patchy airspace opacities at the right midlung, left midlung, and lower lobes are similar to slightly increased since prior exam. IMPRESSION: 1. Patchy perihilar and infrahilar airspace opacities have slightly increased since prior. Findings a re suggestive of infectious/inflammatory processes, such as pneumonia. Consider Covid. 2. Right PICC line with the tip at the distal SVC.
--- NOTE | 2021-01-18 14:32 | P.PN ---
Subjective Progress Note Date: 01/18/21 CHIEF COMPLAINT: Abdominal pain HISTORY OF PRESENT ILLNESS: Surgical service is following regards to patient's abdominal pain and seroma. Patient is currently in the ICU. Pelvic critical care service. Concerns for possible pneumonia. NG tube had come out through the night. He had about 250 out. He also had evidence of postop ileus. He did have a small bowel movements this morning. He is currently afebrile. White count is 12.1 hemoglobin 8.9 creatinine is 4.76. Patient has had worsening uday l function. Followed by nephrology. Patient has been transitioned from BiPAP to nasal cannula Patient seen and examined with Dr. grigsby PHYSICAL EXAM: VITAL SIGNS: Reviewed GENERAL: Well-developed in no acute distress. HEENT: No sclera icterus. Extraocular movements grossly intact. Moist buccal mucosa. Head is atraumatic, normocephalic. Hears conversational speech. No nasal drainage. NECK: Supple without lymphadenopathy. CHEST: Non-labored respirations and equal bilateral excursions. CARDIOVASCULAR: Palpable 2+ radial pulses. ABDOMEN: Soft. Nondistended No evidence of cellulitis or infection at incision site. Bruising noted at the lower abdomen. MUSCULOSKELETAL: No clubbing or cyanosis. NEUROLOGIC: No focal or lateralizing signs. Cranial nerves II through XII grossly intact. PSYCH: Appropriate affect. Alert and oriented to person, place and time. SKIN: Well perfused. Good skin turgor. ASSESSMENT: 1. Postoperative seroma. No evidence of abscess on repeat computed tomography scan 2. Small pneumoperitoneum noted on CAT scan secondary to patient's surgery 3. History of diverticulitis status post lower anterior resection on 01/03/[address] Grigsby 4. Cough and congestion. Possible pneumonia. 5. Acute hypoxic respiratory failure PLAN: -We'll monitor patient with NG tube out -Continue ICU management -Continue supportive care -Continue pain medication as needed -Continue antibiotics per ID Physician Blocklayer note has been reviewed by physician. Signing provider agrees with the documented findings, assessment, and plan of care. Objective - Vital Signs Vital signs: Vital Signs Temp 98.9 F 01/18/21 08:00 Pulse 93 01/18/21 11:30 Resp 27 H 01/18/21 11:30 BP 132/68 01/18/21 11:30 Pulse Ox 92 L 01/18/21 11:30 Intake & Output 01/17/21 01/18/21 01/18/21 18:59 06:59 18:59 Intake Total 3770 1600 1000 Output Total 1541 580 390 Balance 2229 1020 610 Weight 80.9 kg 80.9 kg Intake: IV 2720 1600 1000 Piperacillin-Tazobactam 3 200 100 .375 gm In Sodium Chloride 0.9% 100 ml @ 25 mls/hr IVPB Q8HR TIFFANIE Rx# :[id number] Sodium Chloride 0.45% 1, 250 000 ml @ 125 mls/hr IV . Q8H TIFFANIE Rx#:[id number] Sodium Chloride 0.9% 1, 1020 1500 750 000 ml @ 125 mls/hr IV . Q8H TIFFANIE Rx#:[id number] Sodium Chloride 0.9% 1, 1000 000 ml @ 999 mls/hr IV . Q1H1M ONE Rx#:[id number] Sodium Chloride 0.9% 500 500 ml 500 ml @ 999 mls/hr IV .Q31M ONE Rx#:[id number] Oral 1050 Output: Gastric Drainage 1350 250 Urine 191 330 390 Other: Voiding Method Indwelling Catheter Indwelling Catheter Indwelling Catheter - Labs CBC & Chem 7: 01/18/21 04:15 01/18/21 04:15 Labs: Abnormal Lab Results - Last 24 Hours (Table) 01/17/21 01/18/21 01/18/21 Range/Units 02:58 04:15 04:15 WBC 12.1 H (3.8-10.6) k/uL RBC 2.85 L (4.30-5.90) m/uL Hgb 8.9 L D (13.0-17.5) gm/dL Hct 28.4 L (39.0-53.0) % RDW 16.7 H (11.5-15.5) % Neutrophils # (Manual) 10.00 H (1.3-7.7) k/uL Metamyelocytes # (Man) 0.48 H (0) k/uL Sodium 148 H (137-145) mmol/L Chloride 115 H (98-107) mmol/L Carbon Dioxide 19 L (22-30) mmol/L BUN 122 H* (9-20) mg/dL Creatinine 4.76 H (0.66-1.25) mg/dL Glucose 112 H (74-99) mg/dL Calcium 7.6 L (8.4-10.2) mg/dL Phosphorus 5.1 H (2.5-4.5) mg/dL Magnesium 2.9 H (1.6-2.3) mg/dL Total Bilirubin 3.2 H (0.2-1.3) mg/dL Total Protein 4.5 L (6.3-8.2) g/dL Albumin 2.1 L (3.5-5.0) g/dL Triglycerides 194.0 H (0.0-149.0) mg/dL Procalcitonin 57.49 H (0.02-0.09) ng/mL Microbiology - Last 24 Hours (Table) 01/14/21 06:29 Blood Culture - Preliminary Blood No Growth after 96 hours
--- NOTE | 2021-01-18 14:45 | IR ---
PICC LINE PLACEMENT: HISTORY: Infection requiring long-term antibiotic therapy PROCEDURE: Ultrasound guidance of PICC line placement. COMMISSIONER OF OFFICIALS: Dr. Parra. COMPLICATIONS: None ANESTHESIA: 1. 1% Lidocaine locally. FINDINGS/TECHNIQUE: The procedure was explained to the patient. The risks, complications, benefits and alternatives were discussed and any questions were answered. Informed consent was obtained. The patient was placed supine on the fluoroscopic table and prepped and draped in the usual sterile fas ion. Utilizing a 21 gauge needle and sonographic guidance, access in the right basilic vein was ach ieved and there is placement of a 0.018 guidewire. The vein is patent. A 5-F. sheath was placed ove r the guidewire. The guidewire and dilator were removed and a 5-F. Double lumen PICC line was placed through the sheath with the chest x-ray confirming the tip at the level of the SVC. The sheath was removed, the catheter was flushed and sutured into position. The patient was stable throughout the p rocedure and remained stable upon discharge from the Department of Radiology. The vein puncture was patent under ultrasound. A biswas scale image was obtained to document patency of the vein punctured. All elements of the maximal barrier technique were utilized. IMPRESSION: 1. Successful PICC line placement under ultrasound performed bedside within the ICU.
[2021-01-18] MEDS ORDERED: MVI, ADULT NO.4 WITH VIT K 10 ML, TRACE (CONC-1ML/DOSE) 1 ML, POTASSIUM ACETATE 20 MEQ,... IV ONE ×5 (16:00)
[2021-01-18 16:10] LABS: ABG Base Excess -7.5 mmol/L; ABG HCO3 18 mmol/L (21-25); ABG PCO2 33 mmHg (35-45); ABG PH 7.34 (7.35-7.45); ABG PO2 64 mmHg (83-108); ABG TCO2 19 mmol/L (19-24); Allen Test Performed? Yes
[2021-01-18] MEDS ORDERED: propofoL 100 ML IV ONE (17:00)
[2021-01-18] MEDS ORDERED: SUCCINYLCHOLINE CHLORIDE VIAL 200 MG/10 ML VIAL IV ONE (17:01)
[2021-01-18 17:46] LABS: Glucose,Whole Blood 113 mg/dL (75-99)
[2021-01-18] MEDS: INSULIN ASPART (NovoLOG) 100 UNIT/ML VIAL SQ SCH (18:06)
[2021-01-18 18:45] LABS: ABG Base Excess -9.2 mmol/L; ABG HCO3 19 mmol/L (21-25); ABG Oxygen Saturation 81.8 % (94-97); ABG PCO2 52 mmHg (35-45); ABG TCO2 21 mmol/L (19-24); Allen Test Performed? Yes
[2021-01-18 18:49] LABS: ABG PH 7.17 (7.35-7.45); ABG PO2 59 mmHg (83-108)
--- NOTE | 2021-01-18 18:52 | XR ---
EXAMINATION TYPE: XR chest 1V portable DATE OF EXAM: 01/18/2021 COMPARISON: 01/18/2021 HISTORY: SOB, Follow Up FINDINGS: Interval placement of endotracheal tube which is appropriately placed. NG tube is seen coursing into the stomach. Right-sided PICC line is in place. Perihilar and basilar infiltrates identified. Stable appearance of the cardio-mediastinal structures at this time. IMPRESSION: 1. Indwelling tubes and catheters as noted above. Clinical correlation and follow up until resolution is recommended.
--- NOTE | 2021-01-18 19:04 | PN ---
PROGRESS NOTE DATE OF SERVICE: 01/18/2021 REASON FOR FOLLOWUP: Possible abdominal abscess, ileus and aspiration pneumonia. INTERVAL HISTORY: Patient is afebrile. The patient is hemodynamically stable. The patient did pull out his NG. Did have small bowel per nursing staff. Abdominal distention. He is currently on a BiPAP. He was lethargic, was unable to provide any history. PHYSICAL EXAMINATION: Blood pressure 110/62 with a pulse of 81, temperature is 98.9. He is 90% on 50% FiO2. General description is an elderly male lying in in no distress. Respiratory system: Unlabored breathing, decreased breath sounds in the base, with no wheeze. Heart: S1, S2. Regular rate and rhythm. Abdomen soft, distended. No guarding or rigidity. LABS: Hemoglobin is 8.1, white count 12.1, BUN of 122, creatinine 4.76. DIAGNOSTIC IMPRESSION AND PLAN: Patient admitted to the hospital with abdominal sepsis concerning for possible abscess. Subsequently developing an ileus and vomiting and aspiration pneumonia. Patient is currently in the ICU. Did have worsening of his kidney function. Patient is covered with Zosyn, to continue. Overall prognosis remains to be guarded. MMODL / IJN: [id number] / MTDD
[2021-01-18] MEDS: CHLORHEXIDINE GLUCONATE 15 ML CUP MUCOUS MEM SCH (20:19)
[2021-01-18 22:35] LABS: Hepatitis B Surface AB- Quant <3.5 mIU/mL; Hepatitis B Surface Antibody Non-Reactive (Non-Reactive); Hepatitis B Surface Antigen Non-Reactive (Non-Reactive)
[2021-01-19] MEDS: SIMETHICONE 40 MG/0.6 ML DROPS 2,000 MG/30 ML BOTTLE PO SCH ×2 (00:50→10:02)
[2021-01-19 00:55] LABS: Glucose,Whole Blood 179 mg/dL (75-99)
[2021-01-19] MEDS: INSULIN ASPART (NovoLOG) 100 UNIT/ML VIAL SQ SCH ×4 (00:58→17:27)
[2021-01-19] MEDS: METOCLOPRAMIDE 5 MG/ML 2 ML VIAL IVP SCH ×5 (00:58→17:42)
[2021-01-19] MEDS: SODIUM CHLORIDE 0.45% 1,000 ML IV SCH ×2 (04:25→11:30)
[2021-01-19] MEDS: NOREPINEPHRINE 4 MG in SODIUM CHLORIDE 0.9% 250 ML IV SCH (04:36)
[2021-01-19 05:06] LABS: Ionized Calcium 4.8 mg/dL (4.5-5.3)
[2021-01-19 05:16] LABS: Calcium 7.9 mg/dL (8.4-10.2); Magnesium 3.3 mg/dL (1.6-2.3); Phosphorus 8.4 mg/dL (2.5-4.5); Potassium 5.9 mmol/L (3.5-5.1)
[2021-01-19 05:32] LABS: ABG Base Excess -11.8 mmol/L; ABG HCO3 19 mmol/L (21-25); ABG Oxygen Saturation 99.4 % (94-97); ABG PCO2 65 mmHg (35-45); ABG PO2 251 mmHg (83-108); ABG TCO2 21 mmol/L (19-24); Allen Test Performed? Yes
[2021-01-19 06:01] LABS: ABG PH 7.06 (7.35-7.45)
[2021-01-19 06:17] LABS: Glucose,Whole Blood 191 mg/dL (75-99)
[2021-01-19] MEDS: IPRATROPIUM-ALBUTEROL 3 ML NEB INHALATION SCH ×5 (07:39→19:15)
--- NOTE | 2021-01-19 08:10 | XR ---
EXAMINATION TYPE: XR chest 1V portable DATE OF EXAM: 01/19/2021 COMPARISON: 01/18/2021 HISTORY: Tube placement TECHNIQUE: Single frontal view of the chest is obtained. FINDINGS: The endotracheal tube is approximately 6 cm above the madelin. Enteric catheter courses tow ards the stomach. The tip is not seen. Right PICC line with its tip at brachiocephalic confluence. Ov erlying leads. Heart size within normal limits. Atherosclerotic aorta. Patchy airspace opacities thro ughout the upper lobes, mid lungs and throughout the lower lobes. No pleural effusion or pneumothorax . IMPRESSION: 1. Patchy airspace opacities throughout the lungs are slightly decreased since prior exam. 2. Lines and tubes as described above.
[2021-01-19] MEDS ORDERED: NOREPINEPHRINE 32 MG in SODIUM CHLORIDE 0.9% 218 ML IV SCH (09:00)
[2021-01-19] MEDS ORDERED: FAT EMULSION 20% 250 ML in EMPTY BAG 1 BAG IV SCH (09:00)
--- NOTE | 2021-01-19 09:45 | PCN ---
PROCEDURE NOTE PROCEDURE: Right radial arterial line. OPERATORS: Dr. Golden and Dr. Hurtado. ARTERIAL LINE PLACEMENT: Indications: Hemodynamic monitoring. A time-out was completed verifying correct patient, procedure, site, positioning, and implant(s) or special equipment if applicable. David's test was performed to ensure adequate perfusion. The patient's right wrist was prepped and draped in sterile fashion. 1% Lidocaine was used to anesthetize the area. An 18G Arrow arterial line was introduced into the right radial artery. The catheter was threaded over the guide wire and the needle was removed with appropriate pulsatile blood return. Blood loss was minimal. The catheter was then sutured in place to the skin and a sterile dressing applied. Perfusion to the extremity distal to the point of catheter insertion was checked and found to be adequate. There was good blood return and waveform. The catheter was sutured in place. A sterile dressing was applied by the nurse. The patient tolerated the procedure well and there were no immediate complications. MMODL / IJN: [id number] /
[2021-01-19] MEDS: CHLORHEXIDINE GLUCONATE 15 ML CUP MUCOUS MEM SCH (10:10)
[2021-01-19] MEDS: PIPERACILLIN-TAZOBACTAM 3.375 GM in SODIUM CHLORIDE 0.9% 100 ML IVPB SCH (10:10)
[2021-01-19] MEDS: HEPARIN SODIUM,PORCINE/PF 5,000 UNIT/0.5 ML SYRINGE SQ SCH (10:11)
[2021-01-19] MEDS ORDERED: INSULIN REGULAR 100 UNIT/ML VIAL (IV) IV ONE (10:13)
--- NOTE | 2021-01-19 10:21 | PN ---
PROGRESS NOTE Patient is seen for followup for acute kidney injury. Patient was intubated yesterday. He is currently on FiO2 at 60%. Patient is also maintained on Levophed which is about 10 mics. He continues to have poor urine output and for the last couple of hours, it was down to zero to 5 cc an hour. The patient's renal function has worsened and he will be started on dialysis today. PHYSICAL EXAMINATION: On examination today, patient is sedated. He is on the vent. Blood pressure 100/55, heart rate 80 per minute, he is afebrile. Examination of the heart S1, S2. Examination of the lungs, bilateral breath sounds are heard. Abdomen is soft. Examination of lower extremities shows no evidence of edema. NEUROBIOLOGIST exam cannot be assessed. LAB: Show sodium 147, potassium 5.9, chloride 115, CO2 is 18, BUN 137, serum creatinine 5.74. ASSESSMENT: 1. Acute kidney injury ATN secondary to hypotension, sepsis, progressively worsening with hyperkalemia and acidosis currently with poor urine output. Patient will be started on dialysis. We will proceed with first treatment today. 2. Hyperkalemia associated with acute kidney injury. Expect improvement with dialysis. 3. Hypernatremia. IV fluids were changed to half-normal saline yesterday. The patient cannot take free water down the feeding tube as he is currently n.p.o. His IV fluids will be changed to D5W if the sodium cannot be decreased in the TPN. 4. Acute hypoxic respiratory failure secondary to sepsis and most likely underlying pneumonia. 5. History of recent colon resection and admitted with abdominal pain and severe lactic acidosis. CT abdomen shows some fluid in the abdomen and the pelvis, but no clear abscess formation. The patient is being followed by ID and maintained on antibiotics. 6. Lactic acidosis, currently improving. PLAN: Hemodialysis today and then repeat again in a.m. Proceed with Vascular Surgery consult. Decrease sodium in TPN and I will give one dose of IV insulin 7 units to help with the hyperkalemia. MMODL / IJN: [id number] /
[2021-01-19 10:45] VITALS: BMI 24.7
--- NOTE | 2021-01-19 11:18 | P.PN ---
Subjective Progress Note Date: 01/19/21 Principal diagnosis: Abdominal pain, hypoxemia This is a 75-year-old gentleman with a known history of diverticulitis and had recently undergone a colon resection on 01/03/2021. He was subsequently discharged home and doing fairly well. He was readmitted on 01/14/2021 after he reported lifting a mattress at home and felt a pop in his abdomen. He has had significant abdominal discomfort since then. Computed tomography scan of the abdomen revealed a small amount of pneumoperitoneum. There is also evidence of his surgical history. There is a small amount of fluid within the paracolic gutters. Within the pelvis there is fluid collection anterior to the sacrum and measures 2.6 cm. This could reflect ascites with internal air. Small abscesses difficult to exclude. There is additional fluid with the smallest of a right hemipelvis measuring 2.5 cm may reflect additional ascites with a however abscess is not excluded. Chest x-ray at that time revealed no evidence of acute pulmonary disease. Pneumoperitoneum was identified. Blood cultures revealed no growth. White count 11.6. Hemoglobin 11.6. Sodium 144. Potassium 4.9. Creatinine 3.47. Initially and was 0.8. Lactic acid 2.3. The patient admitted to the regular medical floor. Yesterday he developed increasing shortness of breath with hypoxemia. He is placed on BiPAP 12/5 in the 100% FiO2. Blood gases revealed a pO2 of 81, pCO2 of 32. PH 7.38. He was subsequently transferred to the intensive care unit and is seen now today in consultation. He is quite hard of hearing. He is answering appropriately. He remains on BiPAP 12/5 and 90% FiO2 to maintain O2 saturations in the low 90s. Chest x-ray nonrevealing patchy perihilar and infrahilar airspace opacities increase compared to previous. No pleural effusion or pneumothorax. Nasogastric tube was placed with 2 L of fluid returned. He has received 3 L of fluid resuscitation. He is currently on heparin for DVT prophylaxis. Bronchod ilators. Antibiotics in the form of Zosyn. The patient is seen today 01/18/2021 in follow-up in the intensive care unit. He was trialed on high flow nasal cannula at 8 L early this morning while laying flat during his bath he became quite hypoxemic and he was up to 10 and then 15 L. He was subsequently placed back on BiPAP 16/5 and 60% FiO2. He is currently resting fairly comfortably in bed. Chest x-ray showing patchy perihilar and infrahilar airspace opacities. Increase compared to previous. He is currently on Zosyn. Blood culture reveals no growth to date. White count 12.1. Hemogl obin 8.9. Sodium 148. Potassium 4.2. BUN 122. Creatinine 4.76. Receiving 0.9 normal saline at 125 ML's per hour. The patient is seen today 01/19/2021 in follow-up in the intensive care unit. Yesterday he continued to have worsening hypoxemic respiratory failure requiring intubation and mechanical ventilation. He is currently on assist control mode with a rate of 36, tidal volume 450, FiO2 60% and a PEEP of 15. Morning blood gases revealed a PaO2 of 251, pCO2 65, pH 7.06 on 100% FiO2. His FiO2 was decreased to the 60%. His rate was increased to from 30 to 36. He is currently on 0.45 normal saline at 125 ML's per hour. Sedated with propofol 50 mcg/kg/m. On norepinephrine at 0.2 mcg/kg/m which is approximately 1.6 mcg/m. He is being nourished with TPN at 30 mL per hour. Chest x-ray reveals patchy air space opacities throughout the lungs slightly decreased compared to previous. Right upper extremity PICC line is in place. Blood cultures reveal no growth. Sodium 147. Potassium 5.9. Chloride 115. Bicarb 18. BUN 137. Creatinine 5.74. CBC is pending. Sputum culture pending. He remains on bronchodilators, antibiotics in the form of Zosyn. Objective - Vital Signs Vital signs: Vital Signs Temp 99.1 F 01/19/21 04:30 Pulse 81 01/19/21 08:09 Resp 36 H 01/19/21 07:00 BP 100/55 01/19/21 07:00 Pulse Ox 94 L 01/19/21 07:00 Intake & Output 01/18/21 01/19/21 01/19/21 18:59 06:59 18:59 Intake Total 2271.253 2585.602 100 Output Total 525 160 Balance 9405.224 7425.602 100 Weight 80.9 kg 80.5 kg 80.5 kg Intake: IV 1560 2115 Mvi, Adult No.4 with Vit 60 390 K 10 ml Trace (Conc-1Ml/ Dose) 1 ml Potassium Acetate 20 meq Calcium Gluconate 1 gm In Amino Acids 5 %/Dextrose 20 % 1 ,000 ml @ 30 mls/hr IV . Q24H [facility] Rx#:[id number] Piperacillin-Tazobactam 3 100 .375 gm In Sodium Chloride 0.9% 100 ml @ 25 mls/hr IVPB Q8HR [facility] Rx# :[id number] Sodium Chloride 0.45% 1, 750 1625 000 ml @ 125 mls/hr IV . Q8H [facility] Rx#:[id number] Sodium Chloride 0.9% 1, 750 000 ml @ 125 mls/hr IV . Q8H [facility] Rx#:[id number] Intake, IV Titration 6.472 360.602 100 Amount Norepinephrine 4 mg In 213.680 Sodium Chloride 0.9% 250 ml @ 0.05 MCG/KG/MIN 16. 002 mls/hr IV .[id number] [facility] Rx#:[id number] propofoL 1,000 mg In 6.472 146.922 100 Empty Bag 1 bag @ Titrate IV .Q0M [facility] Rx#: [id number] Output: Urine 525 160 Other: Voiding Method Indwelling Catheter Indwelling Catheter - Exam GENERAL EXAM: Intubated, sedated 75-year-old gentleman, on 60% FiO2 and PEEP of 15 via mechanical ventilator HEAD: Normocephalic. EYES: Sluggish reaction of pupils, equal size. NOSE: Clear with pink turbinates. THROAT: Oral endotracheal and gastric tube secured in place. NECK: No masses, no JVD. CHEST: No chest wall deformity. LUNGS: Equal air entry with crackles in the posterior bases. CVS: S1 and S2 normal with no audible murmur, regular rhythm. ABDOMEN: Abdominal incision clean dry well approximated. [place] intact. Bind er in place. SPINE: No scoliosis or deformity SKIN: No rashes CENTRAL NERVOUS SYSTEM: Sedated, tone is normal in all 4 extremities. EXTREMITIES: There is no peripheral edema. No clubbing, no cyanosis. Peripheral pulses are intact. - Labs CBC & Chem 7: 01/18/21 04:15 01/19/21 04:24 Labs: Abnormal Lab Results - Last 24 Hours (Table) 01/18/21 01/18/21 01/18/21 Range/Units 04:15 16:09 17:44 ABG pH 7.34 L (7.35-7.45) ABG pCO2 33 L (35-45) mmHg ABG pO2 64 L (83-108) mmHg ABG HCO3 18 L (21-25) mmol/L ABG O2 Saturation 91.0 L (94-97) % Sodium (137-145) mmol/L Potassium (3.5-5.1) mmol/L Chloride (98-107) mmol/L Carbon Dioxide (22-30) mmol/L BUN (9-20) mg/dL Creatinine (0.66-1.25) mg/dL Glucose (74-99) mg/dL POC Glucose (mg/dL) 113 H (75-99) mg/dL Calcium (8.4-10.2) mg/dL Phosphorus (2.5-4.5) mg/dL Magnesium (1.6-2.3) mg/dL HDL Cholesterol <5 L (40.0-60.0) mg/dL 01/18/21 01/19/21 01/19/21 Range/Units 18:40 00:54 04:24 ABG pH 7.17 L* (7.35-7.45) ABG pCO2 52 H (35-45) mmHg ABG pO2 59 L* (83-108) mmHg ABG HCO3 19 L (21-25) mmol/L ABG O2 Saturation 81.8 L (94-97) % Sodium 147 H (137-145) mmol/L Potassium 5.9 H (3.5-5.1) mmol/L Chloride 115 H (98-107) mmol/L Carbon Dioxide 18 L (22-30) mmol/L BUN 137 H* (9-20) mg/dL Creatinine 5.74 H (0.66-1.25) mg/dL Glucose 201 H (74-99) mg/dL POC Glucose (mg/dL) 179 H (75-99) mg/dL Calcium 7.9 L (8.4-10.2) mg/dL Phosphorus 8.4 H (2.5-4.5) mg/dL Magnesium 3.3 H (1.6-2.3) mg/dL HDL Cholesterol (40.0-60.0) mg/dL 01/19/21 01/19/21 Range/Units 05:30 06:15 ABG pH 7.06 L* (7.35-7.45) ABG pCO2 65 H (35-45) mmHg ABG pO2 251 H (83-108) mmHg ABG HCO3 19 L (21-25) mmol/L ABG O2 Saturation 99.4 H (94-97) % Sodium (137-145) mmol/L Potassium (3.5-5.1) mmol/L Chloride (98-107) mmol/L Carbon Dioxide (22-30) mmol/L BUN (9-20) mg/dL Creatinine (0.66-1.25) mg/dL Glucose (74-99) mg/dL POC Glucose (mg/dL) 191 H (75-99) mg/dL Calcium (8.4-10.2) mg/dL Phosphorus (2.5-4.5) mg/dL Magnesium (1.6-2.3) mg/dL HDL Cholesterol (40.0-60.0) mg/dL Microbiology - Last 24 Hours (Table) 01/14/21 06:29 Blood Culture - Preliminary Blood No Growth after 120 hours Assessment and Plan Assessment: 1 Abdominal pain secondary to small amount of fluid accumulation in the paracolic gutters. Within the pelvis her's fluid collection anterior to the sacrum measures 2.6 cm. Additional fluid with small focus of air in the right hemipelvis measuring 2.5 cm. Suspect ascites, hematoma, cannot completely rule out abscess and currently on Zosyn 2 Recent low anterior resection secondary to diverticulitis on 01/03/2021 3 Acute hypoxemic respiratory failure secondary to fluid volume overload and possible pneumonia requiring intubation and mechanical ventilatory support on 01/18/2021 4 Acute kidney injury mild creatinine up to 5.74. GFR 9. 5 History of bladder cancer 6 History gastroesophageal reflux disease 7 Former smoker Plan: The patient was seen and evaluated by Dr. Golden Chest x-ray and ABGs and labs reviewed Change 0.45 normal saline to D5W at 125 ML's per hour Decrease FiO2 to 60%, increase rate to 36 Titrate norepinephrine for hemodynamic stability Receiving TPN and lipids for nutritional support Continue bronchodilators, antibiotics Nephrology recommending hemodialysis Plan to speak to his niece Luz Pichardo today Overall prognosis is quite guarded and poor Right radial arterial line placed We will continue to follow and make further recommendations based on his clinical status Critical care time 38 minutes, not including procedures I, the cosigning physician, performed a history & physical examination of the patient. Lungs sounds with crackles in the bilateral bases. Maintaining good O2 saturations in the 90s on 60% FiO2 and PEEP of 15 via the mechanical ventilator. I discussed the assessment and plan of care with my nurse practitioner, Dorothy Hurtado. I attest to the above note as dictated by her.
[2021-01-19 11:43] LABS: Glucose,Whole Blood 115 mg/dL (75-99)
[2021-01-19 12:55] LABS: Glucose,Whole Blood 79 mg/dL (75-99)
[2021-01-19 13:11] LABS: Glucose,Whole Blood 70 mg/dL (75-99)
[2021-01-19] MEDS ORDERED: DEXTROSE 50% SYRINGE 50 ML IVP ONE (13:11)
[2021-01-19] MEDS ORDERED: DEXTROSE 5% IN WATER 1,000 ML IV ONE (13:33)
[2021-01-19 13:53] LABS: Glucose,Whole Blood 128 mg/dL (75-99)
[2021-01-19 14:32] LABS: Calcium 7.7 mg/dL (8.4-10.2); Potassium 5.3 mmol/L (3.5-5.1)
[2021-01-19 15:18] LABS: Glucose,Whole Blood 101 mg/dL (75-99)
--- NOTE | 2021-01-19 15:38 | P.PN ---
Progress Note - Text Progress Note Date: 01/19/21 The patient's condition has worsened. He is currently intubated. The has had renal failure. The family decided whether make him comfort care or to proceed with dialysis. Vital signs are stable on movement. Abdomen is soft. Severe pneumonia. Patient's condition is critical. We'll continue to follow with you.
--- NOTE | 2021-01-19 15:43 | P.PN ---
Subjective 75-year-old male with recent abdominal surgery was readmitted as his surgical incision and decision was the history and patient was believed to have some fluid collection with possible vertigo abscesses because of that reason patient was admitted to the hospital. Patient is presently on Zosyn infectious disease is following the patient. Patient respiratory status has worsened patient is on 4 L of oxygen later in the day patient is requiring more and more oxygen chest x-ray was obtained which showed increased infiltrate in the left lower lobe most probably atelectasis patient is already on antibiotics which is Zosyn which is being continued at this time patient has some gurgling sounds lobe possibly of condition patient does have elevated lactic acid which persisted will give a 1 L bolus of fluid and see how he responds to it patient appears to be tachypneic from a acidosis patient is on 75 mL per hour of fluid. Pulmonology was consu lted earlier. Patient is being transferred to stepdown unit at this time. is not taking deep is because of her severe abdominal pain 01/17/2021 Patient is presently on BiPAP for acute respiratory failure. Patient had a CT of the abdomen and repeat 1 which showed bilateral lower lobe pneumonia with air bronchogram patient is already on Zosyn which is being continued. Patient has ileus and has significant output since yesterday because it and patient received IV fluid boluses about 3 L and patient will be switched to a 1 25 mL of normal saline. Patient barely has any urine output, creatinine continue to get worse nephrology evaluated the patient. Patient is presently not on any pressor support. 01/18/2021 Patient leukocytosis is improving his renal function continued to get worse and patient started urinating about 40 mL per hour. Patient has acute urinary necrosis this is expected to improve. Patient is hyponatremic and hypochloremic because of that reason patient was started on half-normal saline at 1 25 mL per hour patient doesn't have any GI bleed but drop in hemoglobin secondary to hemodilution 3 affect although drop is significant will closely monitor for any clinical GI bleed. Patient remains on BiPAP. Patient maintains on Zosyn dose of which was cut down because of her renal dysfunction. 01/19/2021 Patient is presently intubated patient went into respiratory failure yesterday patient is on IV 0.45 saline at 1 25 mL/h sedated with propofol patient is also on norepinephrine high-dose. Discussions were made with the family and they're contemplating comfort care at this time creatinine continue to get worse patient will need hemodialysis Review of systems unable to obtain due to his clinical condition All inpatient medications were reviewed and appropriate changes in these medications as dictated in the interval history and assessment and plan. PHYSICAL EXAMINATION: GENERAL: Intubated sedated HEENT: Pupils are round and equally reacting to light. EOMI. No scleral icterus. No conjunctival pallor. Normocephalic, atraumatic. No pharyngeal erythema. No thyromegaly. CARDIOVASCULAR: S1 and S2 present. No murmurs, rubs, or gallops. PULMONARY: Diminished breath sounds some gurgling in the throat area. ABDOMEN: Abdominal binder in place. MUSCULOSKELETAL: No joint swelling or deformity. EXTREMITIES: No cyanosis, clubbing, or pedal edema. NEUROLOGICAL: Intubated SKIN: No rashes. Assessment and plan -Severe sepsis/shock secondary to bilateral lower lobe pneumonia patient will be continued on Zosyn. Patient is on norepinephrine at this time -Acute hypoxic respiratory failure requiring intubation secondary to septic shock which is again secondary to pneumonia -Acute renal failure probably secondary to ATN secondary to sepsis and hypotension is receiving IV fluids as mentioned above received IV fluid boluses --Ileus improved -Abdominal pain postoperative fluid collection possibility of the abscesses that cannot be ruled out patient is on Zosyn which will be continued. Patient had diverticulitis in the past for which patient underwent colectomy -Gastroesophageal reflux disease -DVT prophylaxis with subcutaneous heparin which will be continued Patient has multiorgan dysfunction clinically not doing well. Objective - Vital Signs Vital signs: Vital Signs Temp 99.8 F H 01/19/21 12:00 Pulse 90 01/19/21 14:30 Resp 37 H 01/19/21 14:30 BP 117/59 01/19/21 14:30 Pulse Ox 97 01/19/21 14:30 Intake & Output 01/18/21 01/19/21 01/19/21 18:59 06:59 18:59 Intake Total 7601.569 3649.602 1550.754 Output Total 525 160 10 Balance 2246.645 4245.602 1540.754 Weight 80.9 kg 80.5 kg 80.5 kg Intake: IV 1560 2115 1290 Dextrose 5% in Water 1, 200 000 ml @ 100 mls/hr IV . Q10H [facility] Rx#:[id number] Mvi, Adult No.4 with Vit 60 390 240 K 10 ml Trace (Conc-1Ml/ Dose) 1 ml Potassium Acetate 20 meq Calcium Gluconate 1 gm In Amino Acids 5 %/Dextrose 20 % 1 ,000 ml @ 30 mls/hr IV . Q24H [facility] Rx#:[id number] Piperacillin-Tazobactam 3 100 .375 gm In Sodium Chloride 0.9% 100 ml @ 25 mls/hr IVPB Q12HR [facility] Rx #:[id number] Piperacillin-Tazobactam 3 100 .375 gm In Sodium Chloride 0.9% 100 ml @ 25 mls/hr IVPB Q8HR [facility] Rx# :[id number] Sodium Chloride 0.45% 1, 750 1625 750 000 ml @ 125 mls/hr IV . Q8H [facility] Rx#:[id number] Sodium Chloride 0.9% 1, 750 000 ml @ 125 mls/hr IV . Q8H [facility] Rx#:[id number] Intake, IV Titration 6.472 360.602 260.754 Amount Norepinephrine 32 mg In 83.090 Sodium Chloride 0.9% 218 ml @ 0.2 MCG/KG/MIN 7.547 mls/hr IV .Q24H [facility] Rx#: [id number] Norepinephrine 4 mg In 213.680 Sodium Chloride 0.9% 250 ml @ 0.05 MCG/KG/MIN 16. 002 mls/hr IV .[id number] [facility] Rx#:[id number] propofoL 1,000 mg In 6.472 146.922 177.664 Empty Bag 1 bag @ Titrate IV .Q0M [facility] Rx#: [id number] Output: Urine 525 160 10 Other: Voiding Method Indwelling Catheter Indwelling Catheter ABP, PAP, CO, CI - Last Documented Arterial Blood Pressure 109/52 - Labs CBC & Chem 7: 01/18/21 04:15 01/19/21 13:43 Labs: Abnormal Lab Results - Last 24 Hours (Table) 01/18/21 01/18/21 01/18/21 Range/Units 04:15 16:09 17:44 ABG pH 7.34 L (7.35-7.45) ABG pCO2 33 L (35-45) mmHg ABG pO2 64 L (83-108) mmHg ABG HCO3 18 L (21-25) mmol/L ABG O2 Saturation 91.0 L (94-97) % Sodium (137-145) mmol/L Potassium (3.5-5.1) mmol/L Chloride (98-107) mmol/L Carbon Dioxide (22-30) mmol/L BUN (9-20) mg/dL Creatinine (0.66-1.25) mg/dL Glucose (74-99) mg/dL POC Glucose (mg/dL) 113 H (75-99) mg/dL Calcium (8.4-10.2) mg/dL Phosphorus (2.5-4.5) mg/dL Magnesium (1.6-2.3) mg/dL HDL Cholesterol <5 L (40.0-60.0) mg/dL 01/18/21 01/19/21 01/19/21 Range/Units 18:40 00:54 04:24 ABG pH 7.17 L* (7.35-7.45) ABG pCO2 52 H (35-45) mmHg ABG pO2 59 L* (83-108) mmHg ABG HCO3 19 L (21-25) mmol/L ABG O2 Saturation 81.8 L (94-97) % Sodium 147 H (137-145) mmol/L Potassium 5.9 H (3.5-5.1) mmol/L Chloride 115 H (98-107) mmol/L Carbon Dioxide 18 L (22-30) mmol/L BUN 137 H* (9-20) mg/dL Creatinine 5.74 H (0.66-1.25) mg/dL Glucose 201 H (74-99) mg/dL POC Glucose (mg/dL) 179 H (75-99) mg/dL Calcium 7.9 L (8.4-10.2) mg/dL Phosphorus 8.4 H (2.5-4.5) mg/dL Magnesium 3.3 H (1.6-2.3) mg/dL HDL Cholesterol (40.0-60.0) mg/dL 01/19/21 01/19/21 01/19/21 Range/Units 05:30 06:15 11:42 ABG pH 7.06 L* (7.35-7.45) ABG pCO2 65 H (35-45) mmHg ABG pO2 251 H (83-108) mmHg ABG HCO3 19 L (21-25) mmol/L ABG O2 Saturation 99.4 H (94-97) % Sodium (137-145) mmol/L Potassium (3.5-5.1) mmol/L Chloride (98-107) mmol/L Carbon Dioxide (22-30) mmol/L BUN (9-20) mg/dL Creatinine (0.66-1.25) mg/dL Glucose (74-99) mg/dL POC Glucose (mg/dL) 191 H 115 H (75-99) mg/dL Calcium (8.4-10.2) mg/dL Phosphorus (2.5-4.5) mg/dL Magnesium (1.6-2.3) mg/dL HDL Cholesterol (40.0-60.0) mg/dL 01/19/21 01/19/21 01/19/21 Range/Units 13:10 13:43 13:51 ABG pH (7.35-7.45) ABG pCO2 (35-45) mmHg ABG pO2 (83-108) mmHg ABG HCO3 (21-25) mmol/L ABG O2 Saturation (94-97) % Sodium (137-145) mmol/L Potassium 5.3 H (3.5-5.1) mmol/L Chloride 115 H (98-107) mmol/L Carbon Dioxide 18 L (22-30) mmol/L BUN 136 H* (9-20) mg/dL Creatinine 6.83 H (0.66-1.25) mg/dL Glucose 125 H (74-99) mg/dL POC Glucose (mg/dL) 70 L 128 H (75-99) mg/dL Calcium 7.7 L (8.4-10.2) mg/dL Phosphorus (2.5-4.5) mg/dL Magnesium (1.6-2.3) mg/dL HDL Cholesterol (40.0-60.0) mg/dL 01/19/21 Range/Units 15:17 ABG pH (7.35-7.45) ABG pCO2 (35-45) mmHg ABG pO2 (83-108) mmHg ABG HCO3 (21-25) mmol/L ABG O2 Saturation (94-97) % Sodium (137-145) mmol/L Potassium (3.5-5.1) mmol/L Chloride (98-107) mmol/L Carbon Dioxide (22-30) mmol/L BUN (9-20) mg/dL Creatinine (0.66-1.25) mg/dL Glucose (74-99) mg/dL POC Glucose (mg/dL) 101 H (75-99) mg/dL Calcium (8.4-10.2) mg/dL Phosphorus (2.5-4.5) mg/dL Magnesium (1.6-2.3) mg/dL HDL Cholesterol (40.0-60.0) mg/dL Microbiology - Last 24 Hours (Table) 01/19/21 07:50 Sputum Culture - Preliminary Sputum 01/14/21 06:29 Blood Culture - Preliminary Blood No Growth after 120 hours
[2021-01-19 17:23] LABS: Glucose,Whole Blood 108 mg/dL (75-99)
[2021-01-19 19:09] VITALS: TEMP 98.8
[2021-01-19] MEDS ORDERED: LORazepam 2 MG/ML INJ IV PRN (19:56)
[2021-01-19] MEDS ORDERED: MORPHINE SULFATE 2 MG/ML SYRINGE IV PRN (19:56)
[2021-01-19] MEDS ORDERED: ATROPINE OPHTH SOLN 1% 5ML BTL SUBLINGUAL PRN (19:56)
[2021-01-19] MEDS ORDERED: SCOPOLAMINE 1.5MG/72HR PATCH TRANSDERM SCH (20:00)
[2021-01-19] MEDS ORDERED: MORPHINE SULFATE (100 MG/2 ML) 100 MG in SODIUM CHLORIDE 0.9% 100 ML IV SCH (20:00)
[2021-01-19] MEDS: MORPHINE SULFATE 4 MG/ML SYRINGE IV PRN ×2 (20:45→20:57)
[2021-01-19 20:57] VITALS: BP 118/70
[2021-01-19 21:09] VITALS: PULSE 84; RESP 36
--- NOTE | 2021-01-19 22:10 | P.PN ---
Progress Note - Text Progress Note Date: 01/19/21 REASON FOR FOLLOWUP: abdominal abscess, ileus and aspiration pneumonia. INTERVAL HISTORY: Patient is afebrile. The patient ended up getting intubated and is currently pt is intubated/ sedated unable to provide any history. most information from the chart and talking to the nursing staff PHYSICAL EXAMINATION: Blood pressure 90/62 with a pulse of 91, temperature is 98.9. He is 90% on 50% FiO2. General description is an elderly male lying in in no distress. Respiratory system: Unlabored breathing, coarse crackles at the base, with no wheeze. Heart: S1, S2. Regular rate and rhythm. Abdomen soft, distended. No guarding or rigidity. LABS: reviewed. DIAGNOSTIC IMPRESSION AND PLAN: Patient admitted to the hospital with abdominal sepsis concerning for abscess. ileus and vomiting and aspiration pneumonia. Patient is did have worsening of his kidney function. Patient is covered with Zosyn, Overall prognosis remains to be guarded. family deciding dialysis vs comfort measure , will follow family wishes
--- NOTE | 2021-01-25 12:32 | CDI ---
Documentation Clarification Form Date: 01/25/2021 12:14:33 PM From: Gina DislaFuchsTARI pena, CCDS Admit Date: 01/14/2021 09:19:00 AM Patient Name: Denton Pichardo Visit Number: [id number] Discharge Date: 01/19/2021 10:30:00 PM ATTENTION: The Clinical Documentation Specialists (CDI) and [facility] Coding Staff appreciate your assistance in clarifying documentation. Please respond to the clarification below the line at the bottom and electronically sign. The CDI & [facility] Coding staff will review the response and follow-up if needed. Please note: Queries are made part of the Legal Health Record. If you have any questions, please contact the author of this message via ITS. Dr. Esteban Sahu: Sepsis is documented beginning with the 01/16 Attending Progress Note. Per the 01/14 H/P: The patient was admitted on 01/14 with abdominal pain status post an elective colectomy for Diverticulitis one week prior. Severe Sepsis is documented in the 01/07 Attending Progress Note: Severe sepsis probably secondary to bilateral lower lobe pneumonia. Severe Sepsis/Septic Shock is documented in the 01/18 Attending Progress Note due to the same. For each diagnosis, documentation must be clear to determine if the condition was present at the time of the patients inpatient admission or developed during the hospital stay. Additional clarification regarding the [insert diagnosis] is requested. History/Risk Factors per the 01/14 H/P: Diverticulitis and Chronic Constipation status post an elective Colectomy with Anterior Resection and End-End Anastomosis one week prior to this admission. Diverticulosis, GERD, MRSA and previous Appendectomy. Per the 01/14 ED Note Past Medical History: Bladder Cancer and BPH with previous Hernia Repair. Clinical Indicators: Presented to the ED via EMS on 01/14 with diffuse abdominal pain, acute onset the day before. ED Clinical Impression: Abdominal pain, Leukocytosis status post colon resection. 01/14 VS: T 98.8, P 94, R 16 - 20, BP 127/88, PO 95 RA 01/15 VS: T 97.5, P 85 - 104, R 17, BP 116/67, PO 90 RA - 93 2Lnc 01/14 LAB: WBC 16.4, Pl Ct 488, Neut 13.8, Lymph 1.2, Lactic Acid 1.1, COVID negative. 01/15 LAB: WBC 27.36, Pl Ct 550, Neut 25.54, Lymph 0.66 01/16 Lactic Acid: 4.4 - 3.9 01/14 CT Abdomen/Pelvis: Small amount of pneumoperitoneum. Fluid in paracolic gutters. Ascites, small abscess difficult to exclude. 01/14 CXR: No acute pulmonary disease. 01/16 CXR: Mild infiltrate in left lower lobe. 01/18 CXR: Suggestive of infectious/inflammatory processes, such as pneumonia. Consider COVID. Treatment 01/14: IV Morphine, IV fluid Na Cl 1,000 mls @ 999 mls/hr q1H, IV Dilaudid, IV Zosyn, IV Zofran 01/16: IV fluid boluses: Na Cl 1,000 mls @ 999 mls/hr q31M, Na Cl 2,000 mls @ 999 mls/hr q1H 01/17: IV Levophed, IV Reglan, IV fl bolus Na Cl 500 mls @ 999 mls/hr q31M, Intubated, NGT, A Line. Definition of Present on Admission (POA): A diagnosis present at the time the order for admission to inpatient status was written. Please clarify if the documented Sepsis and Severe Sepsis was Present on Admission along with the cause of Sepsis. [ x] Y = Yes, the condition was present at the time of the order for inpatient admission. [ ] Please specify the cause of Sepsis [ ] N = No, the condition was not present at the time of the order for inpatient admission. [ ] Please specify the cause of Sepsis [ ] W = Clinically undetermined if the condition was present at the time of the order for inpatient admission. (Template Last Revised: September 2020) MTDD
--- NOTE | 2021-01-25 12:44 | CDI ---
Documentation Clarification Form Date: 01/25/2021 12:33:00 PM From: Gina DislaFuchsTARI pena, CCDS Admit Date: 01/14/2021 09:19:00 AM Patient Name: Dentno Pichardo Visit Number: [id number] Discharge Date: 01/19/2021 10:30:00 PM ATTENTION: The Clinical Documentation Specialists (CDI) and [facility] Coding Staff appreciate your assistance in clarifying documentation. Please respond to the clarification below the line at the bottom and electronically sign. The CDI & [facility] Coding staff will review the response and follow-up if needed. Please note: Queries are made part of the Legal Health Record. If you have any questions, please contact the author of this message via ITS. Dr. Esteban Sahu: Per the 01/16 General Surgeon's Progress Note: Possible Pneumonia, consult pulmonary. Per the 01/17 Attending Progress Note: Severe Sepsis probably secondary to bilateral lower lobe pneumonia, continued on Zosyn. Per the 01/17 Infectious Disease Progress Note: Abdominal abscess and possible Aspiration Pneumonia. For each diagnosis, documentation must be clear to determine if the condition was present at the time of the patients inpatient admission or developed during the hospital stay. Additional clarification regarding the [insert diagnosis] is requested. History/Risk Factors per the 01/14 H/P: Diverticulitis and Chronic Constipation status post an elective Colectomy with Anterior Resection and End-End Anastomosis one week prior to this admission. Diverticulosis, GERD, MRSA and previous Appendectomy. Per the 01/14 ED Note Past Medical History: Bladder Cancer and BPH with previous Hernia Repair. Clinical Indicators: Presented to the ED via EMS on 01/14 with diffuse abdominal pain, acute onset the day before. ED Clinical Impression: Abdominal pain, Leukocytosis status post colon resection. 01/14 VS: T 98.8, P 94, R 16 - 20, BP 127/88, PO 95 RA 01/15 VS: T 97.5, P 85 - 104, R 17, BP 116/67, PO 90 RA - 93 2Lnc 01/14 LAB: WBC 16.4, Pl Ct 488, Neut 13.8, Lymph 1.2, Lactic Acid 1.1, COVID negative. 01/15 LAB: WBC 27.36, Pl Ct 550, Neut 25.54, Lymph 0.66 01/16 Lactic Acid: 4.4 - 3.9 01/14 CT Abdomen/Pelvis: Small amount of pneumoperitoneum. Fluid in paracolic gutters. Ascites, small abscess difficult to exclude. 01/14 CXR: No acute pulmonary disease. 01/16 CXR: Mild infiltrate in left lower lobe. 01/18 CXR: Suggestive of infectious/inflammatory processes, such as pneumonia. Consider COVID. Treatment 01/14: IV Morphine, IV fluid Na Cl 1,000 mls @ 999 mls/hr q1H, IV Dilaudid, IV Zosyn, IV Zofran 01/16: IV fluid boluses: Na Cl 1,000 mls @ 999 mls/hr q31M, Na Cl 2,000 mls @ 999 mls/hr q1H 01/17: IV Levophed, IV Reglan, IV fl bolus Na Cl 500 mls @ 999 mls/hr q31M, Intubated, NGT, A Line. Definition of Present on Admission (POA): A diagnosis present at the time the order for admission to inpatient status was written. Please clarify if the documented Pneumonia and/or Aspiration Pneumonia was Present on Admission: [ ] Y = Yes, the condition was present at the time of the order for inpatient admission. [ ] Please specify if Pneumonia and/or Aspiration Pneumonia was present. [ ] N = No, the condition was not present at the time of the order for inpatient admission. [ ] Please specify if Pneumonia and/or Aspiration Pneumonia was present [ x ] W = Clinically undetermined if the condition was present at the time of the order for inpatient admission. [ ] Please specify if Pneumonia and/or Aspiration Pneumonia was present. (Template Last Revised: September 2020) MTDD
--- NOTE | 2021-01-30 12:20 | P.DS ---
Providers Date of admission: 01/14/21 09:19 Expected date of discharge: 01/19/21 Attending physician: Shadi Butler MD Consults: 01/14/21 15:56 Consult Physician Routine Consulting Provider: Ruth Ann Kennedy Consult Reason/Comments: abd abscess vs. fluid in ct scan Do you want consulting provider notified?: Yes 01/16/21 08:02 Consult Physician Routine Consulting Provider: Lalo Ferguson Consult Reason/Comments: abdominal pain Do you want consulting provider notified?: Already Contacted 01/16/21 12:58 Consult Physician Routine Consulting Provider: Sim Golden Consult Reason/Comments: cough, possible pneumonia Do you want consulting provider notified?: Yes 01/17/21 07:55 Consult Physician Urgent Consulting Provider: Snow Burr Consult Reason/Comments: acute kidney injury Do you want consulting provider notified?: Yes Primary care physician: [employer] Course: Patient was admitted with sepsis most probably secondary to pneumonia. Patient also had fluid collection in the abdomen post surgery. This probably didn't contribute to sepsis. Patient eventually had septic shock is a pressor requirement to continue to go up. Patient was intubated subsequently . Please refer to nursing documentation for date and time of . For rest of the hospital is a course please refer to my progress note from the same day. Patient Condition at Discharge: Fair Plan - Discharge Summary New Discharge Prescriptions: No Action Omeprazole 20 mg PO DAILY Ibuprofen [Motrin] 600 mg PO Q8HR PRN #30 tab PRN Reason: Pain Clobetasol Propionate [Temovate 0.05% Cream] 1 applic TOPICAL BID PRN PRN Reason: PSORIASIS HYDROcodone/APAP 5-325MG [Primghar 5-325] 1 tab PO Q6HR PRN 3 Days #12 tab PRN Reason: Pain Calcipotriene [Dovonex] 1 applic TOPICAL BID PRN PRN Reason: PSORIASIS Discharge Medication List Omeprazole 20 mg PO DAILY 02/13/19 [History] HYDROcodone/APAP 5-325MG [Primghar 5-325] 1 tab PO Q6HR PRN 3 Days #12 tab 01/08/21 [Rx] Ibuprofen [Motrin] 600 mg PO Q8HR PRN #30 tab 01/08/21 [Rx] Calcipotriene [Dovonex] 1 applic TOPICAL BID PRN 01/14/21 [History] Clobetasol Propionate [Temovate 0.05% Cream] 1 applic TOPICAL BID PRN 01/14/21 [History] Follow up Appointment(s)/Referral(s): [facility],Clinic [Primary Care Provider] - 1-2 days Patient Instructions/Handouts: Abdominal Pain (ED) Discharge Disposition: - Preliminary Cause of Preliminary Cause of : Septic shock secondary to pneumonia
== END 2021-01-19 22:30 | disposition expired | DRG 862 ==
LOC: EC 06:02 → 4SSUR 09:19 → 2SICU 01-16 16:30
PROVIDERS: ADMIT Internal Medicine; ATTEND Internal Medicine
PROC: 5A09357 Assistance with Respiratory Ventilation, Less than 24 Consecutive Hours, Continuous Positive Airway Pressure (ICD-10-PCS; 2021-01-14)
PROC: 0D9670Z Drainage of Stomach with Drainage Device, Via Natural or Artificial Opening (ICD-10-PCS; 2021-01-16)
PROC: 5A0945A Assistance with Respiratory Ventilation, 24-96 Consecutive Hours, High Flow/Velocity Cannula (ICD-10-PCS; 2021-01-17)
PROC: 02HV33Z Insertion of Infusion Device into Superior Vena Cava, Percutaneous Approach (ICD-10-PCS; 2021-01-18)
PROC: 5A1935Z Respiratory Ventilation, Less than 24 Consecutive Hours (ICD-10-PCS; principal; 2021-01-19)
PROC: 4A133B1 Monitoring of Arterial Pressure, Peripheral, Percutaneous Approach (ICD-10-PCS; 2021-01-19)
PROC: 03HY32Z Insertion of Monitoring Device into Upper Artery, Percutaneous Approach (ICD-10-PCS; 2021-01-19)
PROC: 4A133J1 Monitoring of Arterial Pulse, Peripheral, Percutaneous Approach (ICD-10-PCS; 2021-01-19)
PROC: 3E033XZ Introduction of Vasopressor into Peripheral Vein, Percutaneous Approach (ICD-10-PCS; 2021-01-19)
PROC: 3E0G76Z Introduction of Nutritional Substance into Upper GI, Via Natural or Artificial Opening (ICD-10-PCS; 2021-01-19)
PROC: 0BH17EZ Insertion of Endotracheal Airway into Trachea, Via Natural or Artificial Opening (ICD-10-PCS; 2021-01-19)
DX: T81.44XA Sepsis following a procedure, initial encounter (principal); A41.9 Sepsis, unspecified organism; K65.1 Peritoneal abscess; R65.21 Severe sepsis with septic shock; N17.0 Acute kidney failure with tubular necrosis; J96.01 Acute respiratory failure with hypoxia; J69.0 Pneumonitis due to inhalation of food and vomit; E87.0 Hyperosmolality and hypernatremia; E87.2 Acidosis; J44.0 Chronic obstructive pulmonary disease with (acute) lower respiratory infection; J98.11 Atelectasis; K56.7 Ileus, unspecified; K91.870 Postprocedural hematoma of a digestive system organ or structure following a digestive system procedure; K91.872 Postprocedural seroma of a digestive system organ or structure following a digestive system procedure; T81.43XA Infection following a procedure, organ and space surgical site, initial encounter; Y83.8 Other surgical procedures as the cause of abnormal reaction of the patient, or of later complication, without mention of misadventure at the time of the procedure; E87.5 Hyperkalemia; H91.90 Unspecified hearing loss, unspecified ear; K21.9 Gastro-esophageal reflux disease without esophagitis; Z51.5 Encounter for palliative care; Z66 Do not resuscitate; Z20.822 Contact with and (suspected) exposure to COVID-19; E87.8 Other disorders of electrolyte and fluid balance, not elsewhere classified; K80.20 Calculus of gallbladder without cholecystitis without obstruction; N40.1 Benign prostatic hyperplasia with lower urinary tract symptoms; R33.8 Other retention of urine; X50.0XXA Overexertion from strenuous movement or load, initial encounter; M50.30 Other cervical disc degeneration, unspecified cervical region; E87.70 Fluid overload, unspecified; K59.00 Constipation, unspecified; Y92.009 Unspecified place in unspecified non-institutional (private) residence as the place of occurrence of the external cause; Z90.49 Acquired absence of other specified parts of digestive tract; Z85.51 Personal history of malignant neoplasm of bladder; Z86.14 Personal history of Methicillin resistant Staphylococcus aureus infection; Z87.891 Personal history of nicotine dependence; Z60.2 Problems related to living alone; Z71.3 Dietary counseling and surveillance; L40.9 Psoriasis, unspecified; Z98.890 Other specified postprocedural states; Z88.8 Allergy status to other drugs, medicaments and biological substances; Z87.19 Personal history of other diseases of the digestive system; Z79.899 Other long term (current) drug therapy
CPT/HCPCS: 36415; 36573; 36600; 71045; 71046; 74018; 74176; 74177; 80048; 80053; 80061; 81003; 82150; 82330; 82805; 83605; 83690; 83735; 83880; 84100; 84145; 84484; 85025; 85610; 86706; 87040; 87070; 87205; 87340; 87635; 93005; 93306; 94002; 94003; 94640; 94660; 96361; 96374; 96375; 99285